=== PATIENT | female | born 1945 | race Caucasian/White ===

== ENCOUNTER 2017-12-18 08:52 | Inpatient (IN) | payer OTHER, MEDICARE ==
[~2017-12-18] VITALS: Ht 157.5 cm; Wt 127.5 kg
--- NOTE | 2017-12-18 09:49 | ED GENERAL ADULT ---
See Addendum History of Present Illness General Chief Complaint: General Adult Stated Complaint: ?CONFUSED LAST PM Source: patient, family, old records Exam Limitations: no limitations Vital Signs & Intake/Output Vital Signs & Intake/Output Vital Signs Date Time Temp Pulse Resp B/P B/P Pulse O2 O2 Flow FiO2 Mean Ox Delivery Rate 12/18 1311 98.5 89 20 149/63 96 Room Air 12/18 0900 96.1 82 18 138/84 97 Room Air Room Air Allergies Coded Allergies: NO KNOWN ALLERGIES (04/23/15) NKA per [facility] antibiotic order sheet. -- Jeri 04/23/15 Triage Note: BIBA FROM HOME, PER EMS AND PATIENT PT WAS CONFUSED LAST NIGHT, "I COULDN'T FIGURE OUT HOW TO GET IN TOUCH WITH ANYONE", PER EMS PT WAS YELLING OUTSIDE FOR HELP LAST NIGHT. THIS AM PT GOT IN TOUCH WITH HER GIRLFRIEND WHO CAME OVER, PT TALKING ABOUT "MY IN JUNE, I HAVEN'T BEEN OUT OF THE HOUSE SINCE THEN, I AM ON DEPRESSION MEDICATION, I HAVE ONE DRINK A DAY". PER PT SON AND HIS GIRLFRIEND ARE MOVING IN ON December TO TAKE CARE OF ME, I HAVE A APPT WITH DR SANTOS IN JANUARY. Triage Nurses Notes Reviewed? yes Onset: Gradual Duration: SINCE 5 PM YESTERDAY Timing: recent history Injury Environment: home Severity: moderate No Modifying Factors: none HPI: Patient is a 72-year-old female with history of anxiety, depression, hypothyroidism presenting to the emergency Department chief complaint of episode of confusion yesterday evening. Also patient reports that she's had intermittent confusion worsening over past month and a half. Family reports that she's been dealing with anxiety and depression and living alone since her passed approximately 6 months ago. Patient denying any current confusion chest pain palpitations or shortness of breath. She reports that yesterday evening she was trying to call someone and forgot, HOW to use the phone. She started yelling out for her neighbors been known came. Eventually someone came encountered down. She felt better immediately afterwards. According to family members she starts a thought process and cannot complete it because she cannot find the words to use. Patient reports that she is getting getting poor sleep over the past several months. Feels tired throughout the day. Patient also reports that she's had 2 falls over the past 1 month. One time she just rolled off the side of her bed. She called EMS to help her back onto bed but was not seen or evaluated. The second time she fell her legs gave out and she was weak, again she did not see anyone. According to family members her son and the girlfriend are planning to move in with her to help her around the house. Currently patient reports that she gets around the house with a rolling computer chair. Significant decline in ambulation status over the past several months. Patient also reports that she is gained about 40 pounds. No nausea or vomiting. Denies any burning with urination but does report urinary frequency for which she takes oxybutynin (Tesha Limon) Reconcile Medications Citalopram Hydrobromide (Citalopram HBr) 20 MG TABLET 1 TAB PO DAILY DEPRESSION (Reported) Methimazole 5 MG TABLET 1 TAB PO EOD HYPOTHYROID (Reported) Oxybutynin Chloride 5 MG TABLET 1 TAB PO TID OAB (Reported) Propranolol HCl 10 MG TABLET 1 TAB PO DAILY TREMOR / ANXIETY (Reported) (Oscar Martino DO) Past History Travel History Traveled to [place] past 21 day No Medical History Any Pertinent Medical History? see below for history Neurological: NONE EENT: NONE Cardiovascular: NONE Respiratory: NONE Gastrointestinal: NONE Hepatic: NONE Renal: KIDNEY STONES Musculoskeletal: NONE Psychiatric: anxiety, depression Endocrine: hypothyroidism Blood Disorders: NONE Cancer(s): NONE [employer]/Reproductive: NONE Surgical History Surgical History: non-contributory Psychosocial History What is your primary language Spanish Tobacco Use: Quit >30 days ago ETOH Use: occasional use Illicit Drug Use: denies illicit drug use Family History Hx Contributory? No (Tesha Limon) Review of Systems Review of Systems Constitutional: Reports: see HPI. Comments Review of systems: See HPI, All other systems negative. Constitutional, no chills fever or weight loss HEENT: No visual changes no sore throat no congestion Cardiovascular: No chest pain ,palpitation , orthopnea or ankle swelling Skin, no jaundice no rashes Respiratory: No dyspnea cough sputum or hemoptysis GI: No nausea no vomiting : No dysuria No hematuria Muscle skeletal: no back pain, no neck pain, Neurologic: No numbness NO HEADACHES Psych: POS STRESS/ANXIETY AND DEPRESSION, NO HI OR SI Heme/endocrine: No bruising no bleeding no polyuria or polydipsia Immunology: No splenectomy or history of AIDS (Tesha Limon) Physical Exam Physical Exam General Appearance: no apparent distress, alert, awake, comfortable, obese Comments: obese well-nourished person in no acute distress HEENT: extraocular motion intact, no nystagmus. Pupils equally round and reactive to light and accommodation. Nose is atraumatic. External auditory canal and Tympanic membranes clear. Pharynx normal. No swelling or edema. Moist oromucosa. Neck: Full range of motion, no C-spine tenderness. Normal inspection. Back: Nontender Cardiovascular: Regular rate and rhythms no audible murmurs rubs or gallops. Respiratory: Chest nontender. No respiratory distress.breath sounds clear to auscultation bilaterally Abdomen: Soft, nontender nondistended, no appreciable organomegaly. Normal bowel sounds. No ascites. No rebound or guarding. Extremity: Nonpitting edema in the lower extremities bilaterally., no calf tenderness to palpation, normal and equal pulses. Neuro: Alert oriented x3, motor sensory normal, cranial nerves II through XII grossly intact. Emulate with slow steady gait with max assist of 2. Cerebellar testing is unremarkable. Skin: No appreciable rash on exposed skin, skin is warm and dry. Psych: TEARFUL AT TIMESl, memory and judgment is normal. Core Measures ACS in differential dx? Yes CVA/TIA Diagnosis: No Sepsis Present: No Sepsis Focused Exam Completed? No (Tesha Limon) Progress Differential Diagnoses I considered the following diagnoses in my evaluation of the patient: CVA,TIA, ANXIETY, POLYSUBSTANCE ABUSE, DEMENTIA, ADJUSTMENT DISORDER Plan of Care: Orders Procedure Date/time Status CBC WITHOUT DIFFERENTIAL 12/19 0600 Active BASIC ELECTROLYTES PLUS BUN&CR 12/19 0600 Active Heart Healthy Diet 12/18 D Active Change service to 12/18 1751 Active Patient Data 12/18 1524 Active ED Holding Orders 12/18 1434 Active Admit to inpatient 12/18 1434 Active Vital Signs 12/18 1434 Active Code Status 12/18 1434 Active Add-on Test (ER Only) 12/18 1244 Active CULTURE,URINE 12/18 1045 Active Intake & Output 12/18 0951 Active URINE DRUG SCREEN FOR ER ONLY 12/18 0951 Complete URINALYSIS 04/17 0951 Complete THYROID STIMULATING HORMONE 12/18 950 Complete TROPONIN LEVEL 12/18 950 Complete MAGNESIUM 12/18 950 Complete FREE T4 12/18 950 Complete ETHANOL 12/18 950 Complete COMPREHENSIVE METABOLIC PANEL 12/18 950 Complete CBC WITHOUT DIFFERENTIAL 12/18 950 Complete B-TYPE NATRIURETIC PEP (BNP) 12/18 950 Complete EKG 12/18 950 Active PSYCHIATRIC CONSULT 12/18 UNK Active Current Medications Sig/Carrie Start time Last Medication Dose Stop Time Status Admin Citalopram 20 MG DAILY 12/19 0900 AC Hydrobromide (Celexa) Propranolol HCl 10 MG DAILY 12/19 09 AC (Inderal 10 MG Tablet.) Oxybutynin Chloride 5 MG TID 12/18 2100 AC (Ditropan) Methimazole 5 MG .[EOD] 12/18 1630 UNVr (Tapazole 5 MG Tablet) Sodium Chloride 1,000 ML ONCE ONE 12/18 1345 AC 12/18 (Normal Saline 0.9%) 12/19 0304 1342 Sodium Chloride 250 ML BOLUS ONE 12/18 1245 CAN (Normal Saline 0.9%) 12/18 1344 Laboratory Tests 12/18/17 1130: Anion Gap 11, Estimated GFR 37 L, BUN/Creatinine Ratio 20.0, Glucose 93, Calcium 9.7, Magnesium 1.5 L, Total Bilirubin 0.6, AST 14, ALT 15, Alkaline Phosphatase 79, Troponin I < 0.01, Dca-C-Lgidjpqayjy Pept 454 H, Total Protein 7.3, Albumin 3.7, Globulin 3.6, Albumin/Globulin Ratio 1.0 L, TSH 0.753, Free T4 1.36, CBC w Diff NO MAN DIFF REQ, RBC 3.54 L, MCV 93.1, MCH 31.4 H, MCHC 33.8, RDW 14.2, MPV 7.4, Gran % 66.7, Lymphocytes % 21.1, Monocytes % 8.1, Eosinophils % 3.7, Basophils % 0.4, Absolute Granulocytes 4.7, Absolute Lymphocytes 1.5, Absolute Monocytes 0.6, Absolute Eosinophils 0.3, Absolute Basophils 0, Serum Alcohol < 10.0 12/18/17 1045: Urine Opiates Screen < 100, Methadone Screen 63, Barbiturate Screen < 60, Ur Phencyclidine Scrn < 6.00, Amphetamines Screen < 100, U Benzodiazepines Scrn < 85, Urine Cocaine Screen < 50, Urine Cannabis Screen < 5.00, Urine Color YEL, Urine Clarity CLEAR, Urine pH 6.0, Ur Specific [place] <= 1.005, Urine Protein NEG, Urine Ketones NEG, Urine Nitrite NEG, Urine Bilirubin NEG, Urine Urobilinogen 0.2, Ur Leukocyte Esterase SMALL H, Ur Microscopic SEDIMENT EXAMINED, Urine RBC 1-3, Urine WBC 3-5 H, Ur Epithelial Cells FEW, Urine Bacteria FEW H, Urine Hemoglobin SMALL H, Urine Glucose NEG Microbiology 12/18 1045 URINE ROUT: Urine Culture - RECD 12/18/2017 1:46:41 PM patient informed of all of her results and imaging study results. Due to patient weakness and difficulty ambulating, onset for patient to be discharged home to live alone. Patient will need physical therapy consultation. They would like patient admitted to telemetry for questionable TIA. Patient has been a symptomatic since in the emergency department. No acute changes with EKG and troponin is negative. Patient able to eat and drink, swallowing without difficulty or choking. Discussed Dr. Wang he agrees with plan. Family is in agreement to plan as well. Patient will be admitted. Diagnostic Imaging: Viewed by Me: Radiology Read, CT Scan. Discussed w/RAD: Radiology Read, CT Scan. Radiology Impression: PATIENT: DESHAWN READ PRESENT AGE: 72 PATIENT ACCOUNT NO: [id number] : 47 LOCATION: [facility] ORDERING PHYSICIAN: Tesha MURGUIA SERVICE DATE: 12/18/17 EXAM TYPE: CAT - CT HEAD WO IV CONTRAST EXAMINATION: CT HEAD WITHOUT CONTRAST CLINICAL INFORMATION: Confusion last night. COMPARISON: No relevant prior imaging. TECHNIQUE: Contiguous axial imaging was performed from the skull base to vertex without intravenous administration of contrast. DLP: 635.29 mGy-cm FINDINGS: There is no acute intracranial hemorrhage or abnormal extra axial collection. No intracranial mass effect midline shift. Lateral and third ventricles are normal. No hydrocephalus. Ill-defined foci of hypoattenuation are visualized within the periventricular white matter that most likely represent a chronic manifestation of small vessel ischemia. Cano-white matter differentiation is grossly preserved and there is no evidence of acute territorial infarct. The calvarium and skull base are intact. Mastoid air cells and middle ear cavities are well-aerated. Visualized paranasal sinuses are well-aerated. IMPRESSION: There are scattered chronic small vessel ischemic changes within the periventricular white matter. No's of acute territorial infarct or hemorrhage. DICTATED BY: Norman Titus MD DATE/TIME DICTATED:12/18/171058 LOCOMOTIVE ENGINEER:DANIELA DATE/TIME TRANSCRIBED:12/18/171058 CONFIDENTIAL, DO NOT COPY WITHOUT APPROPRIATE AUTHORIZATION. <Electronically signed in Other Vendor System> SIGNED BY: Norman Titus MD 12/18/17 1106 CXR Impression: SLIGHT CARDIOMEGALY. Initial ED EKG: SINUS RHYTHM AT 85 BPM, PROBABLE LEFT ATRIAL ABNORMALITY (Tesha Limon) Differential Diagnoses I considered the following diagnoses in my evaluation of the patient: (Oscar Martino DO) Departure Departure Time of Disposition: 1403 Disposition: STILL A PATIENT Condition: Stable Clinical Impression Primary Impression: Confusion and disorientation Secondary Impressions: Multifactorial gait disorder Urinary tract infection Qualifiers: Urinary tract infection type: site unspecified Hematuria presence: without hematuria Qualified Code: N39.0 - Urinary tract infection, site not specified Referrals: Ivone PENA,Kaveh Romero (PCP/Family) Departure Forms: Customer Survey General Discharge Information Admission Note Spoke With: Lorena Almanzar MD Documentation of Exam: Documentation of any treatments & extenuating circumstances including Concerns Regarding Discharge (functional status, medication knowledge or non-compliance, living conditions, etc.) that warrant an admission rather than observation: Patient requiring telemetry monitoring for the initial 24 hours, serial neuro checks, may need crisis/ Claudia psych evaluation, medication adjustment, physical therapy evaluation and may need rehabilitation placement secondary to weakness and decreased mobility below baseline. (Tesha Limon) PA/FLIGHT DECK OFFICER Co-Sign Statement Statement: ED Attending supervision documentation- [X] I saw and evaluated the patient. I have also reviewed all the pertinent lab results and diagnostic results. I agree with the findings and the plan of care as documented in the PA's/FLIGHT DECK OFFICER's documentation. [] I have reviewed the ED Record and agree with the PA's/FLIGHT DECK OFFICER's documentation. [] Additions or exceptions (if any) to the PAs/FLIGHT DECK OFFICER's note and plan are summarized below: [ She was awake andn alert; she was in no acute distress on my evaluation. (Gunner HICKS,Oscar Sprague) Critical Care Note Critical Care Note Critical Care Time: non-applicable (Frederick MURGUIA,Tesha)
--- NOTE | 2017-12-18 11:06 | CT SCAN REPORT ---
EXAMINATION: CT HEAD WITHOUT CONTRAST CLINICAL INFORMATION: Confusion last night. COMPARISON: No relevant prior imaging. TECHNIQUE: Contiguous axial imaging was performed from the skull base to vertex without intravenous administration of contrast. DLP: 635.29 mGy-cm FINDINGS: There is no acute intracranial hemorrhage or abnormal extra axial collection. No intracranial mass effect midline shift. Lateral and third ventricles are normal. No hydrocephalus. Ill-defined foci of hypoattenuation are visualized within the periventricular white matter that most likely represent a chronic manifestation of small vessel ischemia. Cano-white matter differentiation is grossly preserved and there is no evidence of acute territorial infarct. The calvarium and skull base are intact. Mastoid air cells and middle ear cavities are well-aerated. Visualized paranasal sinuses are well-aerated. IMPRESSION: There are scattered chronic small vessel ischemic changes within the periventricular white matter. No's of acute territorial infarct or hemorrhage.
[2017-12-18 11:41] LABS: ABSOLUTE BASOPHIL COUNT 0 /CUMM (0.0-0.2); ABSOLUTE EOSINOPHIL COUNT 0.3 /CUMM (0.0-0.7); ABSOLUTE GRANULOCYTE CT 4.7 /CUMM (1.4-6.5); ABSOLUTE LYMPH COUNT 1.5 /CUMM (1.2-3.4); ABSOLUTE MONOCYTE COUNT 0.6 /CUMM (0.10-0.60); BASOPHIL % 0.4 % (0.0-2.0); EOSINOPHIL % 3.7 % (0-5); GRANULOCYTE % 66.7 % (42.2-75.2); MEAN CORPUSCULAR HGB 31.4 PG (27.0-31.0); MEAN CORPUSCULAR HGB CONC 33.8 G/DL (33.0-37.0); MEAN CORPUSCULAR VOLUME 93.1 FL (81.0-99.0); MEAN PLATELET VOLUME 7.4 FL (7.4-10.4); PLATELET COUNT 405 /CUMM (130-400); RBC DISTRIBUTION WIDTH 14.2 % (11.5-14.5); RED BLOOD CELL CT 3.54 /CUMM (4.20-5.40)
--- NOTE | 2017-12-18 12:22 | RADIOLOGY REPORT ---
EXAMINATION: XR CHEST CLINICAL INFORMATION: Question confusion. COMPARISON: None available. TECHNIQUE: 2 views of the chest were obtained. FINDINGS: Symmetric lung inflation. There is no focal consolidation, pleural effusion, or pneumothorax. Tortuous thoracic aorta. Cardiac silhouette is slightly enlarged. There are no acute osseous findings. IMPRESSION: No acute pulmonary process. Enlarged cardiac silhouette.
[2017-12-18] MEDS ORDERED: METHIMAZOLE5 M1 PO (16:20)
[2017-12-18] MEDS ORDERED: OXYBUTYNIN CHLOR5 M2 PO (16:20)
[2017-12-18] MEDS ORDERED: CITALOPRAM HBR20 MG PO (16:21)
[2017-12-18] MEDS ORDERED: PROPRANOLOL HCL10 M1 PO (16:21)
--- NOTE | 2017-12-18 16:50 | Admission Certification ---
Admission Certification Certification Statement - As attending physician, I certify that at the time of - admission, based on clinical presentation, severity of - symptoms, need for further diagnostic testing and - therapeutic interventions, and risk of adverse outcomes - without in-hospital treatment, in my clinical assessment, - this patient requires an acute hospital stay for a minimum - of two nights or longer. I have also considered psychsocial - factors such as support system, advanced age, financial - issues, cognitive issues, and failed out-patient treatments, - past re-admission history, safety of patient, and lack of - compliance as applicable. Specific rationale supporting this admission is: Fall, weakness and difficulty ambulation
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
--- NOTE | 2017-12-19 05:18 | Event Note ---
Event Note Event Note: Situation: Around 3.30 I was called by the ER to evaluate the patient for confusion Background: This is a 72yo F that was admitted earlier today after experiencing an episode of acute delirium a day before presentation. On my examination the patient was able to tell me her name, address, however she was unable to tell me where she was, the year or the president of the country. She appeared anxious and kept repeating that she feels wrong. She stated that she knew the answer to my question but is unable to communicate. No aphasia/ dysarthria was appreciable on her speech. She did not obey commnads for a neuro exam when attempted. Her CVS exam was suggestive of tachycardia. Her heart rate on the monitor showed up later as 119 with a BP 148/90. It seemed as if the patient had some difficulty putting thoughts to words. The ER physician Dr Walton was in agreement. The patient was examined during [facility] downtime and her chart could not be accessed. A decision was made to pursue a CTA head/ neck to rule out stroke. As of 6:40am, the results are still pending. A/R: * Follow up CTA head/neck * Reassess the patient * At 5pm after downtime, it was noted that the patient has a Cr of 1.4. Please hydrate the patient accordingly as she received contrast for the CTA.
--- NOTE | 2017-12-19 07:05 | PN- Housestaff ---
SonidoDaigle 12/19/17 0705: Subjective Follow-up For: Confusion and unsteady gait. Anxiety Tele-Events Since Last Visit: Patient's heart rate remained in 100s Subjective: Patient remained afebrile and appears seen and examined this morning. He reported having headache 10/. Patient also reported having constipation. Patient denied any chest pain, palpitation, nausea, vomiting, abdominal pain and dysuria. She is reporting more depressed as she reported having low appetite and low energy. The patient denied any suicidal thoughts. Review of Systems Constitutional: Denies: chills, fever. EENTM: Reports: no symptoms. Cardiovascular: Denies: chest pain, palpitations. Respiratory: Denies: cough, short of breath, sputum production. Gastrointestinal: Reports: constipation. Denies: abdominal pain, diarrhea, nausea. Neurological/Psychological: Reports: headache. Objective Last 24 Hrs of Vital Signs/I&O Vital Signs Date Time Temp Pulse Resp B/P B/P Pulse O2 O2 Flow FiO2 Mean Ox Delivery Rate 12/19 0900 98.4 111 16 144/89 12/19 0555 98.4 111 16 144/89 96 Room Air 12/19 0329 98.2 119 16 148/98 95 Room Air 12/18 1311 98.5 89 20 149/63 96 Room Air Physical Exam General Appearance: Alert, Oriented X3, Cooperative Skin Temp/Moisture Exam: Warm/Dry Sepsis Skin Exam (color): Normal for Ethnicity HEENT: Atraumatic, PERRLA, EOMI Neck: Supple Cardiovascular: Normal S1, Normal S2 Lungs: Clear to Auscultation Abdomen: Soft, No Tenderness Neurological: Normal Speech, Strength at 5/5 X4 Ext, Normal Tone, Sensation Intact Extremities: B/L pedal edema grade 1 Assessment/Plan Assessment: 72 YO obese F ex-smoker with PMH of nephrolithiasis status post lithotripsy, anxiety, depression and hyperthyroidism came to ED with chief complaint of confusion and generalized anxiety for 1 day. We are following the patient to telemetry floor following problems. Confusion and gait instability: -CTA head and CT scan head is negative for any intracranial pathology. -Patient having forgetfulness probably due to her depression. -Orthostatic vitals -PT evaluation -Her folic acid, vit b12 and TSH are normal -We will avoid oxybutanin and benzo as recommended by psych to prevent hallucination and psychosis. Generalized anxiety: -Continue her home medications -Psychiatric recommendations. H/O CKD: -Stage 3 with GFR 37 -Her creatinine is at baseline 1.4 after CTA. we will monitor. History of depression: -Continue her home medications History of hyperthyroidism: -Continue methimazole -Continue propranolol -TSH level History of urinary frequency: -Continue oxybutynin DVT prophylaxis: -Mechanical and subcutaneous heparin Code Status: Full code Problem List: 1. Confusion and disorientation 2. Multifactorial gait disorder Pain Ratin Pain Location: headache Pain Goal: Remain pain free Pain Plan: pain pathway Tomorrow's Labs & Rationales: bep/cbc Michelle Connors MD 12/19/17 1057: Attending MD Review Statement Attending Statement Attending MD Statement: examined this patient, discuss w/resident/PA/MACHINE HEEL SPRAYER, agreed w/resident/PA/MACHINE HEEL SPRAYER, reviewed EMR data (avail) Attending Assessment/Plan: 72F PMH hypothyroidism, anxiety, and depression admitted with confusion and weakness. She lost her 6 months ago, has fallen several times since then, most recently a few weeks ago. Overnight she was confused but neurologically intact. Per report she has also been drinking vodka daily, though it is unclear how much. She was given Ativan this morning and was sleeping peacefully. Imaging is negative for CVA and patient has no neurological deficit. 1. Confusion 2. Severe depression 3. MELISA Plan - Continue on telemetry for now - Psychiatry consult - Check orthostatics - Monitor for signs of withdrawal, but no further benzos unless clinical signs are exhibited - Continue home medications - PT eval - DVT PPx
--- NOTE | 2017-12-19 08:24 | CT SCAN REPORT ---
EXAMINATION: CT HEAD ANGIOGRAM CT NECK ANGIOGRAM CLINICAL INFORMATION: Difficulty word finding and altered mental status. Assess for CVA. COMPARISON: CT scan of the head 12/18/2017. Thyroid ultrasound 12/09/2013. TECHNIQUE: Test bolus series followed by intravenous administration 95 mL of Optiray 320. Helical imaging was performed in the axial plane from the mediastinum to the skull vertex. A post contrast axial CT scan of the head was obtained. The degree of stenosis is based off NASCET criteria. The data was processed at the generation technologist workstation for generation of MIP images. Three-dimensional volume rendered reformatted images were also generated at an offline 3-D workstation. Some images are suboptimal due to patient motion artifact and body habitus. DLP: 1106.19 mGy-cm FINDINGS: CT Head: There is no evidence of acute intracranial hemorrhage or territorial infarction. No abnormal mass-effect or midline shift is seen. Cano to white matter differentiation is well preserved. No extra-axial fluid collections are identified. There is no abnormal enhancement. The ventricles are normal in size. There are patchy areas of low attenuation in the periventricular and subcortical white matter, consistent with chronic microvascular ischemic changes. The osseous structures and soft tissues are normal. The mastoid air cells and visualized portions of the paranasal sinuses are well-aerated. CTA neck: There is a classic configuration of the arch of the aorta. There are atheromatous calcifications of the aorta at the origins of the great vessels of the neck. The proximal common carotid and subclavian artery origins bilaterally are degraded by beam hardening artifact from contrast in the right neck venous structures. The great vessels of the neck appear widely patent. The subclavian arteries are patent bilaterally. The common carotid arteries have normal caliber. There are mild atheromatous calcifications at the right carotid bifurcation without significant stenosis. The left carotid bifurcation is unremarkable The internal carotid arteries in the neck bilaterally have uniform and normal caliber. The origins of both vertebral arteries are moderately well seen and appear normal. Account for artifact, but vertebral arteries are patent and demonstrate good opacification throughout their cervical course. The vertebral arteries are codominant. Nonvascular: Visualized lung hickman are well-aerated. The thyroid gland is enlarged extends into the retrosternal region particularly on the right. Densities heterogenous and there is a punctate calcification in the left lateral lobe of the thyroid gland, with areas of low attenuation in both lobes measuring up to 1.1 cm. There is no cervical lymphadenopathy. There is a degenerative anterolisthesis of C3 on C4 and there is a retrolisthesis of C6 and C7. There is multilevel narrowing of intervertebral disc height with facet arthropathic changes and uncovertebral osteophytosis. There are degenerative changes at the bilateral atlantooccipital joints. A focus of density in the lateral aspect of the body of C2 on the right is likely a bone island. CTA Head: In the anterior circulation, the distal internal carotid arteries within the neck appear normal. There are mild atheromatous calcifications of the cavernous internal carotid arteries. The internal carotid artery bifurcations appear normal. The middle and anterior cerebral arteries bilaterally demonstrate normal caliber with no evidence of focal stenosis, aneurysm or vascular malformation. There are 3 anterior cerebral artery A2 segments, a normal variant There is normal arborization of the middle cerebral artery branches. The anterior communicating artery is normal. In the posterior circulation, the right vertebral artery is dominant. The proximal intradural right vertebral artery slightly ectatic without evidence of a discrete aneurysm. The vertebral arteries intradurally have normal caliber. The basilar artery appears normal. The posterior cerebral arteries have normal caliber. The venous sinuses opacify normally. IMPRESSION: 1. There are no acute intracranial territorial infarcts. There are no masses or areas of abnormal enhancement. 2. No focal stenoses, vascular malformations or aneurysms are demonstrated in the head or neck circulation. 3. The study redemonstrates heterogenous thyromegaly. A nodule in the right lobe measures greater than 1 cm, and recommend follow-up ultrasound to assess interval changes. 4. Imaging is slightly suboptimal due to patient motion artifact and body habitus.
[2017-12-19 08:30] LABS: ABSOLUTE BASOPHIL COUNT 0 /CUMM (0.0-0.2); ABSOLUTE EOSINOPHIL COUNT 0.1 /CUMM (0.0-0.7); ABSOLUTE LYMPH COUNT 0.8 /CUMM (1.2-3.4); ABSOLUTE MONOCYTE COUNT 0.3 /CUMM (0.10-0.60); BASOPHIL % 0.4 % (0.0-2.0); EOSINOPHIL % 0.9 % (0-5); HEMATOCRIT 32.7 % (37-47); MEAN CORPUSCULAR HGB 31.5 PG (27.0-31.0); MEAN CORPUSCULAR HGB CONC 33.6 G/DL (33.0-37.0); MEAN CORPUSCULAR VOLUME 93.6 FL (81.0-99.0); MEAN PLATELET VOLUME 7.1 FL (7.4-10.4); RBC DISTRIBUTION WIDTH 14.6 % (11.5-14.5); WHITE BLOOD CELL COUNT 9.3 /CUMM (4.8-10.8)
[2017-12-19 08:43] LABS: GRANULOCYTE % 86.1 % (42.2-75.2); PLATELET COUNT 413 /CUMM (130-400)
--- NOTE | 2017-12-19 10:58 | Incdntl Nt Psy ---
See Addendum Incidental Note Notation: @ 1049: The patient is calm, lying on her right side, asleep. She is arousable to answer only a few questions, and falls back asleep. She staes that she knows what day it is, and then falls asleep. On being aroused again, she denies auditory or visual hallucinations. She denies suicidal or homicidal ideation. She is in no apparent distress. 1. Please clarify what medications she is taking and who is prescribing them. We are aware that Dr. Wiseman has been prescribing citalopram, but the med claim history is not clear on the dosing. Also, the team mentioned that someone started her on aripiprazole, as well. We will revisit her when she is awake and alert. Thank you for this consult.
[2017-12-19 15:27] VITALS: BP 138/80
[2017-12-20 06:49] VITALS: BP 130/78
--- NOTE | 2017-12-20 07:31 | PN- Housestaff ---
[facility] Subjective Follow-up For: Confusion and unsteady gait. Anxiety and Depression Tele-Events Since Last Visit: SR with heart rate between 6587 Subjective: No overnight events. Patient remained afebrile overnight. Seen and examined this morning. She denied any chest pain, short of breath, nausea, vomiting, chills, fever and dysuria. Patient reported having headache /. Review of Systems Constitutional: Denies: chills, fever. EENTM: Reports: no symptoms. Cardiovascular: Denies: chest pain, palpitations. Respiratory: Reports: cough. Denies: short of breath, sputum production. Gastrointestinal: Denies: abdominal pain, constipation, diarrhea, nausea. Genitourinary: Reports: no symptoms. Neurological/Psychological: Reports: headache. Objective Last 24 Hrs of Vital Signs/I&O Vital Signs Date Time Temp Pulse Resp B/P B/P Pulse O2 O2 Flow FiO2 Mean Ox Delivery Rate 12/20 0649 98.4 91 20 130/78 93 Room Air 12/19 2236 98.7 80 20 93 Room Air 12/19 1527 98.4 86 20 138/80 92 Room Air 12/19 1334 98.2 81 20 142/87 94 Room Air 12/19 1111 98.9 98 20 146/84 97 Room Air 12/19 0900 98.4 111 16 144/89 Intake & Output 12/20 0800 12/20 0000 12/19 1600 Intake Total 110 200 Output Total 425 300 Balance -315 -100 Intake, IV 10 Intake, Oral 100 200 Number 2 Bowel Movements Output, Urine 425 300 Patient 277 lb 287 lb 285 lb Weight Weight Bed scale Measurement Method Physical Exam General Appearance: Alert, Oriented X3, Cooperative Skin Temp/Moisture Exam: Warm/Dry Sepsis Skin Exam (color): Normal for Ethnicity HEENT: Atraumatic, PERRLA, EOMI Neck: Supple Cardiovascular: Normal S1, Normal S2 Lungs: Clear to Auscultation Abdomen: Soft, No Tenderness Neurological: Normal Speech, Strength at 5/5 X4 Ext, Normal Tone Extremities: No Edema Assessment/Plan Assessment: 72 YO obese F ex-smoker with PMH of nephrolithiasis status post lithotripsy, anxiety, depression and hyperthyroidism came to ED with chief complaint of confusion and generalized anxiety for 1 day. Problem list. Confusion and gait instability: -CTA head and CT scan head is negative for any intracranial pathology. -Patient having forgetfulness probably due to her depression. -Orthostatic vitals -PT evaluation -Her folic acid, vit b12 and TSH are normal -We will avoid oxybutanin and benzo as recommended by psych to prevent hallucination and psychosis. Generalized anxiety: -Continue her home medications -Psychiatric recommendations. Alcohol withdrawl: -Patient has history of alcohol drinking. -psych recommended to keep patient on CIWA protocol -Supplemental vit b12, folic acid and thiamin. H/O CKD: -Stage 3 with GFR 37 -Her creatinine is at baseline 1.4 after CTA. we will monitor. History of depression: -Continue her home medications History of hyperthyroidism: -Continue methimazole -Continue propranolol History of urinary frequency: -Oxybutynin was discontinued to prevent hallucinations and psychosis. DVT prophylaxis: -Mechanical and subcutaneous heparin Code Status: Full code Problem List: 1. Confusion and disorientation 2. Multifactorial gait disorder Pain Ratin Pain Location: headache Pain Goal: Remain pain free Pain Plan: pain pathway Tomorrow's Labs & Rationales: none Michelle Connors MD 12/20/17 0935: Attending MD Review Statement Attending Statement Attending MD Statement: examined this patient, discuss w/resident/PA/VENEER DRIER FEEDER, agreed w/resident/PA/VENEER DRIER FEEDER, reviewed EMR data (avail) Attending Assessment/Plan: 72F PMH hypothyroidism, anxiety, and depression admitted with confusion and weakness. She lost her 6 months ago, has fallen several times since then, most recently a few weeks ago. Overnight she was confused but neurologically intact. Per report she has also been drinking vodka daily, though it is unclear how much. Imaging is negative for CVA and patient has no neurological deficit. More awake and alert today. A&Ox3 after being A&Ox2 on admission. Able to recall that she was confused yesterday. No neurological deficit. Labs reviewed. 1. Confusion 2. Severe depression 3. MELISA Plan - Discontinue telemetry, transfer to general medicine floor - Psychiatry consult - Monitor for signs of withdrawal, but no further benzos unless clinical signs are exhibited - Continue home medications - PT eval - DVT PPx - Candidate for STR, but refuses to go, as her in rehab in June. Will continue to work with physical therapy. Lives alone now, but in a week will move in with her son.
--- NOTE | 2017-12-20 09:34 | Transfer of Care Summary ---
Hospital Course Course Hospital Course: 72 YO obese F ex-smoker with PMH of nephrolithiasis status post lithotripsy, anxiety, depression and hyperthyroidism came to ED with chief complaint of confusion and generalized anxiety for 1 day. Initially patient was admitted on telemetry floor with a suspicion of stroke considering her confusion. CT scan and CTA head and neck was done that ruled out stroke. Patient has a history of depression and after the of her it's progressively worsened. Psychiatry consult was obtained and recommendations were followed. Psychiatry recommended to provide anticholinergic and benzos to prevent psychosis and hallucinations. [facility]. Patient is refusing to go to rehabilitation facility. For her gait instability we will get PT evaluation. Pertinent Lab Results: Chest x-ray on 12/18/17: IMPRESSION: No acute pulmonary process. Enlarged cardiac silhouette. Head CT scan on 12/18/2017: IMPRESSION: There are scattered chronic small vessel ischemic changes within the periventricular white matter. No's of acute territorial infarct or hemorrhage. Head CTA on 12/18/2017: IMPRESSION: 1. There are no acute intracranial territorial infarcts. There are no masses or areas of abnormal enhancement. 2. No focal stenoses, vascular malformations or aneurysms are demonstrated in the head or neck circulation. 3. The study redemonstrates heterogenous thyromegaly. A nodule in the right lobe measures greater than 1 cm, and recommend follow-up ultrasound to assess interval changes. 4. Imaging is slightly suboptimal due to patient motion artifact and body habitus. Neck CTA 12/18/17: IMPRESSION: 1. There are no acute intracranial territorial infarcts. There are no masses or areas of abnormal enhancement. 2. No focal stenoses, vascular malformations or aneurysms are demonstrated in the head or neck circulation. 3. The study redemonstrates heterogenous thyromegaly. A nodule in the right lobe measures greater than 1 cm, and recommend follow-up ultrasound to assess interval changes. 4. Imaging is slightly suboptimal due to patient motion artifact and body habitus. Assessment/Plan: Confusion and gait instability: -CTA head and CT scan head is negative for any intracranial pathology. -Patient having forgetfulness probably due to her depression. -Orthostatic vitals -PT evaluation -Her folic acid, vit b12 and TSH are normal -We will avoid oxybutanin and benzo as recommended by psych to prevent hallucination and psychosis. Generalized anxiety: -Continue her home medications -Psychiatric recommendations. Alcohol withdrawal; -H/O of alcohol drinking. -Psych recommended to keep patient on CIWA protocol -Supplemental vit b12, folic acid and thiamin H/O CKD: -Stage 3 with GFR 37 -Her creatinine is at baseline 1.4 after CTA. we will monitor. History of depression: -Continue her home medications History of hyperthyroidism: -Continue methimazole -Continue propranolol History of urinary frequency: -Oxybutynin was discontinued to prevent hallucinations and psychosis. DVT prophylaxis: -Mechanical and subcutaneous heparin Code Status: Full code
--- NOTE | 2017-12-20 10:46 | PN- Student ---
Subjective Subjective: No acute events overnight. Patient seen and examined this morning. Patient complains of headache since yesterday. Headache 5/10 that is worse at night. Patient feels "a little bit better than yesterday". Patient feels tired and slept all day even though woke up at 3:00am with chills and headache. Patient reported that "I can't find the words" when interviewed this morning. Patient mentioned, "I gained 35 pounds since my ". Denied chest pain, nausea , vomiting, SOB, abdominal pain, diarrhea. Objective Objective: Vitals: T= 98.4 HR= 91 RR= 20 BP= 130/78 O2Sat= 93 RA I&O: I= 200 O=300 B= -100 BM= 2 PE: General= forgetful, alert, trouble putting thought into words CVS= normal S1 and S2, no gallop rub or murmur Lungs= clear bilateral Abdomen= soft, non-distended, non-tender Neuro= Normal Speech, Strength at 5/5 X4 Ext, Normal Tone Extremities= No Edema, no rashes Results Results: Laboratory Tests 12/20/17 0700: Anion Gap 9, Estimated GFR 44 L, BUN/Creatinine Ratio 15.8 12/19/17 0823: Anion Gap 14, Estimated GFR 37 L, BUN/Creatinine Ratio 17.9, Vitamin B12 308, Folate 12.7, CBC w Diff NO MAN DIFF REQ, RBC 3.50 L, MCV 93.6, MCH 31.5 H, MCHC 33.6, RDW 14.6 H, MPV 7.1 L, Gran % 86.1 H, Lymphocytes % 9.1 L, Monocytes % 3.5, Eosinophils % 0.9, Basophils % 0.4, Absolute Granulocytes 8.0 H, Absolute Lymphocytes 0.8 L, Absolute Monocytes 0.3, Absolute Eosinophils 0.1 , Absolute Basophils 0 12/18/17 1130: Anion Gap 11, Estimated GFR 37 L, BUN/Creatinine Ratio 20.0, Glucose 93, Calcium 9.7, Magnesium 1.5 L, Total Bilirubin 0.6, AST 14, ALT 15, Alkaline Phosphatase 79, Troponin I < 0.01, [id number] Pept 454 H, Total Protein 7.3, Albumin 3.7, Globulin 3.6, Albumin/Globulin Ratio 1.0 L, TSH 0.753, Free T4 1.36, CBC w Diff NO MAN DIFF REQ, RBC 3.54 L, MCV 93.1, MCH 31.4 H, MCHC 33.8, RDW 14.2, MPV 7.4, Gran % 66.7, Lymphocytes % 21.1, Monocytes % 8.1, Eosinophils % 3.7, Basophils % 0.4, Absolute Granulocytes 4.7, Absolute Lymphocytes 1.5, Absolute Monocytes 0.6, Absolute Eosinophils 0.3, Absolute Basophils 0, Serum Alcohol < 10.0 12/18/17 1045: Urine Opiates Screen < 100, Methadone Screen 63, Barbiturate Screen < 60, Ur Phencyclidine Scrn < 6.00, Amphetamines Screen < 100, U Benzodiazepines Scrn < 85, Urine Cocaine Screen < 50, Urine Cannabis Screen < 5.00, Urine Color YEL, Urine Clarity CLEAR, Urine pH 6.0, Ur Specific [place] <= 1.005, Urine Protein NEG, Urine Ketones NEG, Urine Nitrite NEG, Urine Bilirubin NEG, Urine Urobilinogen 0.2, Ur Leukocyte Esterase SMALL H, Ur Microscopic SEDIMENT EXAMINED, Urine RBC 1-3, Urine WBC 3-5 H, Ur Epithelial Cells FEW, Urine Bacteria FEW H, Urine Hemoglobin SMALL H, Urine Glucose NEG Microbiology 12/18 104 URINE ROUT: Urine Culture - RES Assessment/Plan Assessment: 72 y/o obese female with PMH of nephrolithiasis status post lithotripsy, anxiety , depression and hyperthyroidism. 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 Patient was admitted to [facility] due to changes in mental status. CTA of head and neck were negative for ischemia. Patient indicated been drinking alcohol more often then she used to after the of her in June 2017. Even though alcohol was less than 10 upon admission, alcohol withdrawal is in the differential. Other differentials include depressive disorder and bereavement disorder. Plan: Confusion -Probably due to her depression -CTA head and CT scan head is negative for any intracranial pathology -PT evaluation -Her folic acid, vit b12 and TSH are normal -Discontinued oxybutanin and benzo as recommended by psych to prevent hallucination and psychosis -F/U Generalized anxiety -Continue her home medications -Psychiatric recommendations History of depression: -Continue her home medications History of hyperthyroidism: -Cont. methimazole -Cont. propranolol History of urinary frequency: -Oxybutynin was discontinued DVT prophylaxis: -Mechanical and subcutaneous heparin
--- NOTE | 2017-12-20 12:25 | Cons- Psychiatry ---
Psychiatric Consult Date of Consult: 12/20/17 Reason for Consult: "Delirium, hx of anxiety/depression. late June, 'hasn't taken care of herself.'" History of Present Illness: This is a 72-year-old recently female brought in by ambulance from home on 12/18/2017 and zero 911, with a chief complaint of confusion versus question of syncope. Per the triage note, the patient couldn't figure out how to get in touch with anyone, and the night before, EMS had a report that the patient was outside the house yelling. She is followed for primary care by Kaveh Wiseman MD, and has her next appointment with him on 01/05/2018. The patient lives alone, after her , Jim, on 06/29/2017. Allergies: Coded Allergies: NO KNOWN ALLERGIES (NONE 12/19/17) NKA per [facility] antibiotic order sheet. -- Jeri 04/23/15 Current Medications: Current Medications Sig/Carrie Start time Last Medication Dose Route Stop Time Status Admin Acetaminophen 500 MG Q6P PRN 12/20 0815 AC PO Acetaminophen 650 MG ONCE ONE 12/20 0200 DC PO 12/20 0201 Acetaminophen/ 1 TAB ONCE ONE 12/20 0530 DC 12/20 Butalbital/Caffeine PO 12/20 0531 0557 Bisacodyl 5 MG DAILY 12/19 0900 AC 12/20 PO 0819 Citalopram 20 MG DAILY 12/19 0900 AC 12/20 Hydrobromide PO 0818 Heparin Sodium 5,000 UNIT Q8 12/19 1600 AC 12/20 (Porcine) SC 0601 Ibuprofen 200 MG Q6 PRN 12/20 0915 AC PO Methimazole 5 MG Q48H 12/19 0900 AC 12/19 PO 0900 Oxybutynin Chloride 5 MG TID 12/18 2100 DC 12/19 PO 0900 Polyethylene Glycol 17 GM DAILY 12/19 0900 AC 12/20 PO 0819 Propranolol HCl 10 MG DAILY 12/19 0900 AC 12/20 PO 0818 Past History Past Medical History Neurological: NONE EENT: NONE Cardiovascular: NONE Respiratory: NONE Gastrointestinal: NONE Hepatic: NONE Renal: KIDNEY STONES Musculoskeletal: NONE Psychiatric: anxiety, depression, rule out bereavement disorder, alcohol abuse Endocrine: hyperthyroidism Blood Disorders: NONE Cancer(s): NONE PSYCHIATRIC CLINICAL NURSE SPECIALIST/Reproductive: NONE Past Surgical History Surgical History: non-contributory Psychosocial History Strengths/Capabilities: Motivated for treatment, supportive son and friends. Physical Limitations (Interventions): Difficulty walking Psychiatric Treatment History Psych Treatment Psychiatric Treatment Yes Inpatient Treatment No Outpatient Treatment Yes Location of Treatment primary care provider, Dr. 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 She now has the one drink daily, but it is a large one. 1/2 gallon of vodka every 2 weeks equates to about 5 ounces of vodka daily plus her Zambuca. Assessment/Plan Mental Status Orientation: Person, Place, Situation Affect: Constricted Speech: Normal Neuro-vegetative: Anhedonia, Sleep Disturbance Mental Status Exam: The patient is lying on her side in her bed, is easily arousable. She is alert, calm and cooperative. She is oriented to person, place, day, date, month, year. She denies feelings of helplessness or hopelessness, but endorses worthlessness "I'm lazy," and also endorses guilty feelings, feeling that she didn't do enough for her Jim before his . She also feels that her may have been hiding some of his medical ailments from her. She and their son and been trying to get him to go to the doctor, which he refused. She denies any previous psychiatric history, "I'm usually happy and talkative." She is unaware of any family psychiatric history. She denies suicidal or homicidal ideation, including passive suicidality. She denies any history of suicide attempt. She reports that recently she has been feeling some panic, possibly agoraphobia. She reports having a fear of falling by going new places. 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 She reports her sleep is okay, but then states that she is not rested all the time, and really can't sleep more than 2 hours at a time due to her need to arise to urinate secondary to her bladder control problem. She reports that her appetite "must be okay, I gained 35 pounds since my ." She reports drinking 1/2 gallon of Smirnoff and a bottle of Cymbalta every 2 weeks, "I make one Humalog is strained." Prior to the of her spouse, she had one drink per week on a Sunday. She reports when she is really feeling depressed, she can call her brothers or her son and they will come right over. Patient reports that her falls are not due to alcohol, but due to her faulty knees. The patient is stating that she and her friend "want to give back, and mentions volunteering, or making items for the hospital. She mentions the stress of caring for her in his last days, as he was dying from a slow-growing pituitary tumor. She noticed a change in his personality in the last months of his life, in she was feeling depressed all the time, and never knew what to say to him, "everything I said was wrong." The patient reports that she has never been alone, and that her son, Malcolm, her only child, and his girlfriend, are going to move in with her. The patient denies any history of seizure, or prior attempt to detox from alcohol. Lab Results: Laboratory Tests 12/20 12/19 0700 0823 Chemistry Sodium (137 - 145 mmol/L) 139 140 Potassium (3.5 - 5.1 mmol/L) 3.9 4.1 Chloride (98 - 107 mmol/L) 105 104 Carbon Dioxide (22 - 30 mmol/L) 25 23 Anion Gap (5 - 16) 9 14 BUN (7 - 17 mg/dL) 19 H 25 H Creatinine (0.5 - 1.0 mg/dL) 1.2 H 1.4 H Estimated GFR (>60 ml/min) 44 L 37 L BUN/Creatinine Ratio (7 - 25 %) 15.8 17.9 Vitamin B12 (239 - 931 pg/mL) 308 Folate (2.76 - 20.0 ng/mL) 12.7 Hematology CBC w Diff NO MAN DIFF REQ WBC (4.8 - 10.8 /CUMM) 9.3 RBC (4.20 - 5.40 /CUMM) 3.50 L Hgb (12.0 - 16.0 G/DL) 11.0 L Hct (37 - 47 %) 32.7 L MCV (81.0 - 99.0 FL) 93.6 MCH (27.0 - 31.0 PG) 31.5 H MCHC (33.0 - 37.0 G/DL) 33.6 RDW (11.5 - 14.5 %) 14.6 H Plt Count (130 - 400 /CUMM) 413 H MPV (7.4 - 10.4 FL) 7.1 L Gran % (42.2 - 75.2 %) 86.1 H Lymphocytes % (20.5 - 51.1 %) 9.1 L Monocytes % (1.7 - 9.3 %) 3.5 Eosinophils % (0 - 5 %) 0.9 Basophils % (0.0 - 2.0 %) 0.4 Absolute Granulocytes (1.4 - 6.5 /CUMM) 8.0 H Absolute Lymphocytes (1.2 - 3.4 /CUMM) 0.8 L Absolute Monocytes (0.10 - 0.60 /CUMM) 0.3 Absolute Eosinophils (0.0 - 0.7 /CUMM) 0.1 Absolute Basophils (0.0 - 0.2 /CUMM) 0 12/18 12/18 1130 1045 Chemistry Sodium (137 - 145 mmol/L) 141 Potassium (3.5 - 5.1 mmol/L) 4.4 Chloride (98 - 107 mmol/L) 104 Carbon Dioxide (22 - 30 mmol/L) 26 Anion Gap (5 - 16) 11 BUN (7 - 17 mg/dL) 28 H Creatinine (0.5 - 1.0 mg/dL) 1.4 H Estimated GFR (>60 ml/min) 37 L BUN/Creatinine Ratio (7 - 25 %) 20.0 Glucose (65 - 99 mg/dL) 93 Calcium (8.4 - 10.2 mg/dL) 9.7 Magnesium (1.6 - 2.3 mg/dL) 1.5 L Total Bilirubin (0.2 - 1.3 mg/dL) 0.6 AST (14 - 36 U/L) 14 ALT (9 - 52 U/L) 15 Alkaline Phosphatase (<127 U/L) 79 Troponin I (< 0.11 ng/ml) < 0.01 [id number]-[id number] Pept (<125 pg/mL) 454 H Total Protein (6.3 - 8.2 g/dL) 7.3 Albumin (3.5 - 5.0 g/dL) 3.7 Globulin (1.9 - 4.2 gm/dL) 3.6 Albumin/Globulin Ratio (1.1 - 2.2 %) 1.0 L TSH (0.270 - 4.200 uIU/mL) 0.753 Free T4 (0.78 - 2.44 ng/dL) 1.36 Hematology CBC w Diff NO MAN DIFF REQ WBC (4.8 - 10.8 /CUMM) 7.0 RBC (4.20 - 5.40 /CUMM) 3.54 L Hgb (12.0 - 16.0 G/DL) 11.1 L Hct (37 - 47 %) 33.0 L MCV (81.0 - 99.0 FL) 93.1 MCH (27.0 - 31.0 PG) 31.4 H MCHC (33.0 - 37.0 G/DL) 33.8 RDW (11.5 - 14.5 %) 14.2 Plt Count (130 - 400 /CUMM) 405 H MPV (7.4 - 10.4 FL) 7.4 Gran % (42.2 - 75.2 %) 66.7 Lymphocytes % (20.5 - 51.1 %) 21.1 Monocytes % (1.7 - 9.3 %) 8.1 Eosinophils % (0 - 5 %) 3.7 Basophils % (0.0 - 2.0 %) 0.4 Absolute Granulocytes (1.4 - 6.5 /CUMM) 4.7 Absolute Lymphocytes (1.2 - 3.4 /CUMM) 1.5 Absolute Monocytes (0.10 - 0.60 /CUMM) 0.6 Absolute Eosinophils (0.0 - 0.7 /CUMM) 0.3 Absolute Basophils (0.0 - 0.2 /CUMM) 0 Toxicology Urine Opiates Screen (>2000 NG/ML) < 100 Methadone Screen (>300 NG/ML) 63 Barbiturate Screen (>200 NG/ML) < 60 Ur Phencyclidine Scrn (>25 NG/ML) < 6.00 Amphetamines Screen (>1000 NG/ML) < 100 U Benzodiazepines Scrn (>200 NG/ML) < 85 Urine Cocaine Screen (>300 NG/ML) < 50 Urine Cannabis Screen (>50 NG/ML) < 5.00 Serum Alcohol (<10 MG/DL) < 10.0 Urines Urine Color (YEL,AMB,STR) YEL Urine Clarity (CLEAR) CLEAR Urine pH (5.0 - 8.0) 6.0 Ur Specific [place] (1.001 - 1.035) <= 1.005 Urine Protein (NEG,<30 MG/DL) NEG Urine Ketones (NEG) NEG Urine Nitrite (NEG) NEG Urine Bilirubin (NEG) NEG Urine Urobilinogen (0.1 - 1.0 EU/dl) 0.2 Ur Leukocyte Esterase (NEG) SMALL H Ur Microscopic SEDIMENT EXAMINED Urine RBC (0 - 5 /HPF) 1-3 Urine WBC (0 - 2 /HPF) 3-5 H Ur Epithelial Cells (NONE,FEW) FEW Urine Bacteria (NEG/NONE) FEW H Urine Hemoglobin (NEG) SMALL H Urine Glucose (N MG/DL) NEG Diffential Diagnosis: Depressive disorder, unspecified Alcohol use disorder, moderate Rule out bereavement disorder Impression: Yesterday, we have suggesting holding her oxybutynin, which can cause or exacerbate confusion and psychotic symptoms such as hallucinations. Abnormalities and the patient's urinalysis on 417 were small amount of urine leukocyte esterase, 3-5 white blood cells, few urine bacteria and a small amount of hemoglobin, in the setting of a few epithelial cells. The patient's confusion and delirium have resolved at the time of our interview today, however, she indicates that she is been drinking at least 5 ounces of alcohol daily since the of her . We suspect that she may be experiencing some alcohol withdrawal, although serum alcohol was less than 10 upon presentation, and her last drink may have been some time on December 17. Provisional Treatment Plan: 1. Please initiate CIWA monitoring protocol 2. If the patient begins to show signs or symptoms of alcohol withdrawal, initiate the EtOH detox protocol. 3. Please start daily thiamine, folic acid and multivitamin. 4. The patient is in agreement to come to [facility] outpatient psychiatry, but intensive outpatient program may be more appropriate. 5. I have asked pastoral care to visit the patient, to discuss her bereavement process, due to her passing away in June 2017 We will continue to follow along with you. Thank you for this consult
[2017-12-20 15:29] VITALS: BP 132/74
[2017-12-20 23:07] VITALS: BP 138/68
[2017-12-21 04:00] VITALS: BP 138/68
[2017-12-21 05:41] VITALS: BP 130/70
--- NOTE | 2017-12-21 07:09 | PN- Student ---
Subjective Subjective: No acute events overnight. Patient seen and examined this morning. Complains of headache last night of 3/10 that improved with advil. She mentioned that Tylenol seem to "do nothing with the headaches" for her. Overall feeling better. Reported having more appetite today. Mentioned that whish to be more active and walk more, but usually tends to lean forward. Denied visual changes, sore throat , neach pain, chest pain, SOB, abdominal pain, nausea/vomiting, diarrhea, dysuria. Objective Objective: VITALS: T= 98.3 HR= 78 RR= 18 BP= 130/70 I&O: I= 1640 O= 425 B= 1215 BM=1 PE: General= alert, oriented. Resting in bed without any distress. CVS= normal S1 and S2, no gallop rub or murmur Lungs= clear bilateral Abdomen= soft, non-distended, non-tender Neuro= Normal Speech, Strength at 5/5 X4 Ext, Normal Tone Extremities= No Edema, no rashes Assessment/Plan Assessment: 72 y/o F with PMHx of nephrolithiasis s/p lithotripsy, anxiety, depression and hyperthyroidism. Patient presented to the ER with a c.c of confusion and generalized anxiety for one day [employer]N [employer]. Patient was admitted to [facility] due to changes in mental status. CTA of head and neck were negative for ischemia. Patient indicated been drinking alcohol more often then she used to after the of her in June 2017. Even though alcohol was less than 10 upon admission , alcohol withdrawal is in the differential. Other differentials include depressive disorder and bereavement disorder. Plan: Confusion -Probably due to her depression -CTA head and neck, CT scan head is negative for ischemia -Her folic acid, vit b12 and TSH are normal -Discontinued oxybutanin and benzo as recommended by psych -F/U psych recommendations -Thiamine and folic acid were added b/c are commonly decreased in chronic alcoholics Generalized anxiety -Continue her home medications -Psychiatric recommendations History of depression: -Continue her home medications History of hyperthyroidism: -Cont. methimazole -Cont. propranolol History of urinary frequency: -Oxybutynin was discontinued DVT prophylaxis: -Mechanical and subcutaneous heparin
--- NOTE | 2017-12-21 07:26 | PN- Housestaff ---
See Addendum Subjective Follow-up For: Confusion and unsteady gait. Anxiety and Depression Tele-Events Since Last Visit: off tele Subjective: No overnight events. Patient remained afebrile. She is seen and examined this morning. patient denied any chest pain, short of breath, nausea, vomiting and dysuria. Patient reported that she had headache last night but after getting pain medication it resolved. CIWA score remained zero. Patient is still refusing STR, we spoke to her about the risk and benefits of not going to STR and she decided to go home. Patient understood the risks and benefits of going home. Review of Systems Constitutional: Denies: chills, fever. EENTM: Reports: no symptoms. Cardiovascular: Denies: chest pain, palpitations. Respiratory: Denies: cough, short of breath, sputum production. Gastrointestinal: Denies: abdominal pain, constipation, diarrhea, nausea. Genitourinary: Reports: no symptoms. Neurological/Psychological: Reports: no symptoms. Objective Last 24 Hrs of Vital Signs/I&O Vital Signs Date Time Temp Pulse Resp B/P B/P Pulse O2 O2 Flow FiO2 Mean Ox Delivery Rate 12/21 0541 98.3 78 18 130/70 12/21 0400 98.4 81 16 138/68 12/20 2307 98.4 82 16 138/68 96 Room Air 12/20 1529 97.9 71 20 132/74 98 Room Air 12/20 0818 98.4 91 20 130/78 Intake & Output 12/21 0800 12/21 0000 12/20 1600 Intake Total 30 670 860 Output Total 250 Balance -220 670 860 Intake, Oral 30 670 860 Number 1 Bowel Movements Output, Urine 250 Patient 281 lb Weight Physical Exam General Appearance: Alert, Oriented X3, Cooperative Skin: No Rashes Skin Temp/Moisture Exam: Warm/Dry Sepsis Skin Exam (color): Normal for Ethnicity HEENT: Atraumatic, PERRLA, EOMI Neck: Supple Cardiovascular: Normal S1, Normal S2 Lungs: Clear to Auscultation Abdomen: Soft, No Tenderness Neurological: Normal Speech, Strength at 5/5 X4 Ext, Normal Tone Extremities: No Edema Assessment/Plan Assessment: 72 YO obese F ex-smoker with PMH of nephrolithiasis status post lithotripsy, anxiety, depression and hyperthyroidism came to ED with chief complaint of confusion and generalized anxiety for 1 day. Problem list. Confusion and gait instability: -CTA head and CT scan head is negative for any intracranial pathology. -Patient having forgetfulness probably due to her depression. -PT evaluation -Her folic acid, vit b12 and TSH are normal -We will avoid oxybutanin and benzo as recommended by psych to prevent hallucination and psychosis. -Patient needs outpatient dameon-psych eval. -Patient refused to go to [facility]. Generalized anxiety: -Continue her home medications -Psychiatric recommendations. Alcohol withdrawl: -Patient has history of alcohol drinking. -psych recommended to keep patient on CIWA protocol -Supplemental vit b12, folic acid and thiamin. H/O CKD: -Stage 3 with GFR 37 -Her creatinine is at baseline 1.4 after CTA. we will monitor. History of depression: -Continue her home medications History of hyperthyroidism: -Continue methimazole -Continue propranolol History of urinary frequency: -Oxybutynin was discontinued to prevent hallucinations and psychosis. DVT prophylaxis: -Mechanical and subcutaneous heparin Code Status: Full code Problem List: 1. Confusion and disorientation 2. Multifactorial gait disorder Pain Ratin Pain Location: none Pain Goal: Remain pain free Pain Plan: pain pathway Tomorrow's Labs & Rationales: bep
--- NOTE | 2017-12-21 08:14 | Patient Discharge Instructions ---
Discharge Instructions General Discharge Information You were seen/treated for: Severe depression Gait instability Watch for these problems: Altered mental status, agitation, nausea, vomiting, severe headache, suicidal ideation, low energy, low appetite, palpitation and chest pain. -If you experience any of these symptoms come to ED or call to your primary care physician. Special Instructions: Follow up with your primary care physician in one week. Follow up with outpatient psychiatry in one week. Diet Recommended Diet: Heart Healthy Activity Activity Self Limited: Yes Acute Coronary Syndrome Inclusion Criteria At DC or during hospital stay patient has or had the following: ACS DIAGNOSIS No Discharge Core Measures Meds if any: Prescribed or Continued at Discharge Meds if any: NOT Prescribed or Continued at Discharge Congestive Heart Failure Inclusion Criteria At DC or during hospital stay patient has or had the following: CHF DIAGNOSIS No Discharge Core Measures Meds if any: Prescribed or Continued at Discharge Meds if any: NOT Prescribed or Continued at Discharge Cerebrovascular accident Inclusion Criteria At DC or during hospital stay patient has or had the following: CVA/TIA Diagnosis No Discharge Core Measures Meds if any: Prescribed or Continued at Discharge Meds if any: NOT Prescribed or Continued at Discharge Venous thromboembolism Inclusion Criteria VTE Diagnosis No VTE Type NONE VTE Confirmed by (Test) NONE Discharge Core Measures - Per Current guidelines, there needs to be overlap - treatment for the first 5 days of Warfarin therapy. - If discharged on Warfarin prior to 5 days of - overlap therapy, the patient will need to be - assessed for post discharge needs including - *Post discharge parental anticoagulation - *Warfarin and/or parental anticoagulation education - *Follow up date to check INR post discharge At least 5 days overlap therapy as Inpatient No Meds if any: Prescribed or Continued at Discharge Note: Overlap Therapy is Warfarin and Anticoagulant Meds if any: NOT Prescribed or Continued at Discharge
--- NOTE | 2017-12-21 13:47 | Discharge Summary ---
Visit Information Visit Dates Admission Date: 12/18/17 Discharge Date: 12/21/17 Hospital Course Course Attending Physician: Dory PENA,[facility] Course: 72 YO obese F ex-smoker with PMH of nephrolithiasis status post lithotripsy, anxiety, depression and hyperthyroidism came to ED with chief complaint of confusion and generalized anxiety for 1 day. Patient reported that yesterday around 6 PM she was at home alone and she was feeling anxious. ED course: Vitals: Temperature 96.1, pulse 82, respiratory rate 18, blood pressure 138/84, oxygen saturation 97% on room air Labs: WBC count 7.0, hemoglobin 11.1, hematocrit 33.0, platelet count 405, sodium 141, potassium 4.4, BUN 28, creatinine 1.4, anion gap 11, BUNs/creatinine ratio 20.0, magnesium 1.5, AST 14, AST 15, troponin less than 0.01, proBNP 454 Confusion and gait instability: Patient presented with confusion and stroke was ruled out with normal CTA and CT scan head. Patient's confusion was probably due to severe depression and anxiety. Patient also had intermittent forgetfulness probably due to severe depression. Considering patient's gait instability physiotherapy consult was obtained and evaluated the patient twice and recommended home physical therapy. During the hospital stay patient's folic acid and vitamin B12 and TSH remained normal. She remained afebrile. Patient was offered short-term rehabilitation facility after the discharge that she refused. Patient had bad experience in the past considering her in short-term rehabilitation after being discharged from hospital that's why she didn't want to go to short-term rehabilitation. Risks and benefits of going home rather than short-term rehabilitation were discussed with patient and she agreed with it. Patient reported that her son and his girlfriend we'll move to her house after a week and she will not be home alone anymore. Severe depression and anxiety: Patient had severe depression considering her symptoms of low energy and low appetite. Patient denied any suicidal ideation. Patient's recently and after that she had severe depression episodes. Her home medications for depression were continued. Psychiatric consult was obtained and recommendations were followed. Psychiatry recommended to stop oxybutynin that can cause psychosis and hallucinations. Psychiatry recommended outpatient follow-up and they will discuss with patient about [facility] psych outpatient follow- up. Alcohol withdrawl: Patient was placed on CIWA protocol and watch for alcohol because symptoms. Patient had history of alcohol abuse especially after her 's she is drinking more. During the hospital stay she didn't score and didn't get any Ativan. H/O CKD: Patient had stage III CKD. Her kidney function was monitored and we have added any medication that can cause nephrotoxicity. Her kidney function remained stable during the hospital stay. History of hyperthyroidism: Continued her home medications. TSH and free T4 remained within normal limits. History of urinary frequency: Her Oxybutynin was stopped as recommended by psychiatry as it can cause hallucinations and psychosis. DVT prophylaxis: Mechanical and subcutaneous heparin Code Status: Full code Allergies: Coded Allergies: NO KNOWN ALLERGIES (NONE 12/19/17) NKA per STS antibiotic order sheet. -- Jeri 04/23/15 Pertinent Lab Results: Chest x-ray on 12/18/17: IMPRESSION: No acute pulmonary process. Enlarged cardiac silhouette. Head CT scan on 12/18/2017: IMPRESSION: There are scattered chronic small vessel ischemic changes within the periventricular white matter. No's of acute territorial infarct or hemorrhage. Head CT on 12/18/2017; IMPRESSION: 1. There are no acute intracranial territorial infarcts. There are no masses or areas of abnormal enhancement. 2. No focal stenoses, vascular malformations or aneurysms are demonstrated in the head or neck circulation. 3. The study redemonstrates heterogenous thyromegaly. A nodule in the right lobe measures greater than 1 cm, and recommend follow-up ultrasound to assess interval changes. 4. Imaging is slightly suboptimal due to patient motion artifact and body habitus. Neck CTA on 12/18/2017: IMPRESSION: 1. There are no acute intracranial territorial infarcts. There are no masses or areas of abnormal enhancement. 2. No focal stenoses, vascular malformations or aneurysms are demonstrated in the head or neck circulation. 3. The study redemonstrates heterogenous thyromegaly. A nodule in the right lobe measures greater than 1 cm, and recommend follow-up ultrasound to assess interval changes. 4. Imaging is slightly suboptimal due to patient motion artifact and body habitus. WBC count 9.3, hemoglobin 11.0, hematocrit 32.7, platelet count 413, sodium 141, potassium 4.0, BUN 17, creatinine 1.2, TSH 0.753, free T4 1 1.36 Disposition Summary Disposition Principal Diagnosis: Confusion and unsteady gait Severe depression and anxiety Additional Diagnosis: History of CKD History of hyperthyroidism History of urinary infrequency Discharge Disposition: home or self care Discharge Instructions General Discharge Information Code Status: Full Code Patient's Diet: Heart healthy diet Patient's Activity: Self-limited Follow-Up Instructions/Appts: Follow up with your primary care physician in one week. Follow up with outpatient psychiatry in one week. Medications at Discharge Discharge Medications: Stop taking the following medications: Oxybutynin Chloride (Oxybutynin Chloride) 5 MG TABLET ORAL THREE TIMES DAILY Continue taking these medications: Methimazole (Methimazole) 5 MG TABLET 1 Tablet ORAL Every other day Comments: Last Taken:12/21/17 Time:925 Propranolol HCl (Propranolol HCl) 10 MG TABLET 1 Tablet ORAL DAILY Comments: Last Taken:12/21/17 Time:926 Citalopram Hydrobromide (Citalopram HBr) 20 MG TABLET 1 Tablet ORAL DAILY Comments: Last Taken:12/21/17 Time:925 Copies To: Jocelyn PENA,[facility]; Ivone PENA,Kaveh Romero; Cristopher James APRN
== END 2017-12-21 16:00 | disposition home health service (06) | DRG 885 ==
LOC: ERH 08:52 → ERHI 14:34 → 1NO 14:34 → ERHI 17:52 → ENRESERV 12-19 12:49 → ENTRNSPT 12-19 13:29 → EDTRNSPTSTS 12-19 13:49 → EDTRNSPT 12-19 13:49 → 1NO 12-19 14:12 → CMPTRNSPT 12-19 14:21 → ENPENDDIS 12-21 13:36 → DELTRNSPT 12-21 15:41 → 1NO 12-21 16:00
PROVIDERS: Internal Medicine Interventional Cardiology; Physician Assistant
DX: F32.2 Major depressive disorder, single episode, severe without psychotic features (principal); N18.3 Chronic kidney disease, stage 3 (moderate); E66.01 Morbid (severe) obesity due to excess calories; Z68.43 Body mass index [BMI] 50.0-59.9, adult; R26.81 Unsteadiness on feet; R41.82 Altered mental status, unspecified; R53.1 Weakness; E03.9 Hypothyroidism, unspecified; I12.9 Hypertensive chronic kidney disease with stage 1 through stage 4 chronic kidney disease, or unspecified chronic kidney disease; F41.9 Anxiety disorder, unspecified; F32.9 Major depressive disorder, single episode, unspecified; Z91.81 History of falling; E66.9 Obesity, unspecified; F43.20 Adjustment disorder, unspecified; Z72.89 Other problems related to lifestyle; Z87.891 Personal history of nicotine dependence
CPT/HCPCS: 1NP; ERO; 36415; 71046; 80307; 81001; 82436; 87086; 93005; 93010; 97116-GO; 97161-GP; 97530-GO; 99232; G0480; J0131; J1644; J3490; J7040

== ENCOUNTER 2018-05-17 17:48 | Inpatient (IN) | payer OTHER, MEDICARE ==
[~2018-05-17] VITALS: Ht 157.5 cm; Wt 126.1 kg
[~2018-05-17 17:48] MED LIST: CITALOPRAM HBR20 MG PO; METHIMAZOLE5 M1 PO; OXYBUTYNIN CHLOR5 M2 PO; PROPRANOLOL HCL10 M1 PO
--- NOTE | 2018-05-17 19:07 | ED AMS/SEIZURE/WEAK/DIZZY ---
History of Present Illness General Chief Complaint: Altered Mental Status Stated Complaint: BIBA FOR MENTAL STATUS CHANGE Source: patient, family Exam Limitations: no limitations Vital Signs & Intake/Output Vital Signs & Intake/Output Vital Signs Date Time Temp Pulse Resp B/P B/P Pulse O2 O2 Flow FiO2 Mean Ox Delivery Rate 05/18 0056 Room Air 05/18 0038 98.3 89 20 130/86 96 Room Air 05/17 2350 97.4 92 20 136/72 98 Room Air 05/17 2229 97.7 90 20 118/71 96 Room Air 05/17 1957 98.9 99 20 147/66 95 Room Air 05/17 1857 98 Room Air 05/17 1801 98.2 100 24 190/98 97 Room Air ED Intake and Output 05/18 0000 05/17 1200 Intake Total Output Total 200 Balance -200 Output, Urine 200 Allergies Coded Allergies: NO KNOWN ALLERGIES (NONE 12/19/17) NKA per STS antibiotic order sheet. -- Jeri 04/23/15 Reconcile Medications Acetaminophen (Unknown Strength) TABLET (Unknown Dose) PO AD PRN PAIN/FEVER ( Reported) Cholecalciferol (Vitamin D3) (Vitamin D3) (Unknown Strength) CAPSULE (Unknown Dose) PO DAILY SUPPLEMENT (Reported) Citalopram Hydrobromide (Citalopram HBr) 20 MG TABLET 1 TAB PO DAILY DEPRESSION (Reported) Dicyclomine HCl 10 MG CAPSULE GI (Reported) Methimazole 5 MG TABLET 1 TAB PO AD HYPOTHYROID (Reported) Propranolol HCl 10 MG TABLET 1 TAB PO DAILY TREMOR / ANXIETY (Reported) Triage Note: biba from home after being found "very confused" by son. hx of same per son with normal CT scans and MRIs done. pt awake/alert with easy wob, no slurred speech. alert to place and person but not time. pt reports "i know i'm here because my memory isn't good - my son will be here to explaion further" Triage Nurses Notes Reviewed? yes Onset: Gradual Duration: day(s): Timing: recent history Injury Environment: home Severity Numbers: 4 Associated Symptoms: weakness HPI: 72 yo woman h/o occasional UTI's presents with weakness, increased confusion, not eating or drinking x several days. She has no fever, chills, nausea, vomiting, dairreha, dyspnea, chest pain. Past History Travel History Traveled to [place] past 21 day No Medical History Any Pertinent Medical History? 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 No Review of Systems Review of Systems Constitutional: Reports: no symptoms. EENTM: Reports: no symptoms. Respiratory: Reports: no symptoms. Cardiovascular: Reports: no symptoms. GI: Reports: no symptoms. Genitourinary: Reports: no symptoms. Musculoskeletal: Reports: no symptoms. Skin: Reports: no symptoms. Neurological/Psychological: Reports: no symptoms. Hematologic/Endocrine: Reports: no symptoms. Immunologic/Allergic: Reports: no symptoms. All Other Systems: Reviewed and Negative Physical Exam Physical Exam General Appearance: well developed/nourished, no apparent distress Head: atraumatic, normal appearance Eyes: Right: PERRL, EOMI. Bilateral: normal appearance. Neck: normal inspection, supple, full range of motion Respiratory: normal breath sounds, chest non-tender, no respiratory distress Gastrointestinal: normal bowel sounds, soft, non-tender Back: normal inspection, normal range of motion Extremities: evidence of injury Neurologic/Psych: no motor/sensory deficits, awake, alert Skin: intact, normal color, warm/dry Core Measures ACS in differential dx? No CVA/TIA Diagnosis No Sepsis Present: No Sepsis Focused Exam Completed? No Progress Differential Diagnosis: dehydration, renal failure vs other. Plan of Care: Orders Procedure Date/time Status Nothing by Mouth 05/18 B Active CBC WITHOUT DIFFERENTIAL 05/18 06 Active BASIC ELECTROLYTES PLUS BUN&CR 05/18 0600 Active Weight 05/18 41 Active Vital Signs 05/18 41 Active Teach/Educate 05/18 41 Active Pain Treatment and Response 05/18 41 Active Nutritional Intake, Monitor 05/18 41 Active Isolation 05/18 41 Active Intake & Output 05/18 41 Active Patient Care Conference 09/15 0041 Active Activity/Ambulation 05/18 0041 Active Lab Add-on Test 05/18 UNK Active FingerStick- Glucose 05/18 UNK Active Regular Diet 05/17 D Complete CULTURE,URINE 05/17 2326 Active URINE DRUGS OF ABUSE 05/17 2301 Active Pathway - chart 05/17 2300 Active House Staff 05/17 2300 Active Patient Data 05/17 2300 Active Code Status 05/17 2300 Active Patient Data 05/17 2208 Active LACTIC ACID 05/17 2207 Complete Saline Lock 05/17 2110 Active Misc Message 05/17 2110 Active ED Holding Orders 05/17 2110 Active Admit to inpatient 05/17 211 Active Vital Signs 05/17 211 Complete Code Status 05/17 211 Complete SERUM OSMOLALITY 05/17 1940 Complete ETHANOL 05/17 194 Complete URINE LYTES, SPOT 05/175 Active URINALYSIS 05/17 1907 Complete TROPONIN LEVEL 05/17 190 Complete LIPASE 05/17 1907 Complete LACTIC ACID 05/17 1907 Complete HEPATIC FUNCTION PANEL 05/17 1907 Complete CBC WITHOUT DIFFERENTIAL 05/17 1907 Complete BASIC METABOLIC PANEL 05/17 1907 Complete AMYLASE 05/17 1907 Complete EKG 05/17 1907 Active NIH Stroke Scale 05/17 1856 Active Intake & Output 05/17 1841 Active Lab Add-on Test 05/17 UNK Active VTE Mechanical Prophylaxis 05/17 UNK Active Vital Signs 05/17 UNK Active Intake & Output 05/17 UNK Complete Activity/Ambulation 05/17 UNK Active Current Medications Sig/Carrie Start time Last Medication Dose Stop Time Status Admin Cholecalciferol 1,000 IU DAILY 05/18 0900 AC (Vitamin D) Sodium Chloride 1,000 ML Q13H 05/17 2300 AC 05/17 (Normal Saline 0.9%) 2325 Laboratory Tests 05/17/18 2210: Lactic Acid 0.5 L 05/17/181939: Serum Alcohol Cancelled 05/17/181939: Anion Gap 9, Estimated GFR 20 L, BUN/Creatinine Ratio 17.5, Glucose 90, Serum Osmolality 313 H, Lactic Acid 0.6 L, Calcium 10.3 H, Total Bilirubin 0.4, Direct Bilirubin 0.3, AST 15, ALT 16, Alkaline Phosphatase 77, Troponin I < 0.01 , Total Protein 7.0, Albumin 3.6, Amylase 48, Lipase 139, CBC w Diff NO MAN DIFF REQ, RBC 3.20 L, MCV 90.8, MCH 30.8, MCHC 33.9, RDW 13.8, MPV 7.3 L, Gran % 69.1, Lymphocytes % 20.7, Monocytes % 8.1, Eosinophils % 1.7, Basophils % 0.4, Absolute Granulocytes 6.1, Absolute Lymphocytes 1.8, Absolute Monocytes 0.7 H, Absolute Eosinophils 0.1, Absolute Basophils 0, Serum Alcohol < 10.0 05/17/181924: Urine Color STRAW, Urine Clarity CLEAR, Urine pH 6.0, Ur Specific [place] 1.020, Urine Protein NEG, Urine Ketones NEG, Urine Nitrite NEG, Urine Bilirubin NEG, Urine Urobilinogen 0.2, Ur Leukocyte Esterase TRACE H, Ur Microscopic SEDIMENT EXAMINED, Urine RBC 1-3, Urine WBC 10-15 H, Ur Epithelial Cells MOD H, Urine Bacteria RARE H, Urine Hemoglobin NEG, Urine Glucose NEG 05/17/181924: Urine Opiates Screen < 100, Methadone Screen 59, Barbiturate Screen < 60, Ur Phencyclidine Scrn < 6.00, Amphetamines Screen < 100, U Benzodiazepines Scrn < 85, Urine Cocaine Screen < 50, Urine Cannabis Screen < 5.00, Ur Random Creatinine Pending, Ur Random Sodium Pending, Ur Random Potassium Pending, Fraction Sodium Excret Pending Microbiology 05/17 1925 URINE ROUT: Urine Culture - RECD Diagnostic Imaging: Viewed by Me: Radiology Read, CT Scan, MRI. Discussed w/RAD: Radiology Read, CT Scan. Radiology Impression: PATIENT: DESHAWN READ PRESENT AGE: 72 PATIENT ACCOUNT NO: [id number] : 47 LOCATION: [facility] ORDERING PHYSICIAN: Gael Walton MD SERVICE DATE: 05/17/18 EXAM TYPE: CAT - CT HEAD WO IV CONTRAST EXAMINATION: CT HEAD WITHOUT CONTRAST CLINICAL INFORMATION: Mental status change. COMPARISON: 12/18/2017. TECHNIQUE: Contiguous axial images of the brain were obtained without IV contrast. DLP: 622 mGy-cm. FINDINGS: There are no pathologic extra-axial fluid collections. The lateral, third, fourth ventricles are nondilated and concordant with the appearance of the sulci. There is no evidence for acute intraparenchymal hemorrhage or infarct. There is mild periventricular low-attenuation indicative of small vessel disease. There is neither mass nor mass effect. There is no shift of midline structures. The paranasal sinuses and mastoid air cells are clear. There are no osseous lesions. IMPRESSION: No evidence for acute intracranial injury. DICTATED BY: Sreekanth Polo MD DATE/TIME DICTATED:05/17/182105 ROPE SILICA MACHINE OPERATOR:DANIELA DATE/TIME TRANSCRIBED:05/17/182105 CONFIDENTIAL, DO NOT COPY WITHOUT APPROPRIATE AUTHORIZATION. <Electronically signed in Other Vendor System> SIGNED BY: Sreekanth Polo MD 05/17/182111 Initial ED EKG: SINUS, BIPHASIC P IN V1, NO ACUTE CHANGES Departure Departure Disposition: HOME OR SELF CARE Condition: Stable Clinical Impression Primary Impression: Acute renal failure Secondary Impressions: Change in mental status, Dehydration, Weakness Referrals: Kaveh Wiseman MD (PCP/Family) Departure Forms: Customer Survey General Discharge Information Admission Note Spoke With: Scooby Palacios MD Documentation of Exam: Documentation of any treatments & extenuating circumstances including Concerns Regarding Discharge (functional status, medication knowledge or non-compliance, living conditions, etc.) that warrant an admission rather than observation: pt with weakness and now with increased cr, more than twice her baseline, will merits iv fluids... I doubt acute UTI given her presnetation, but will also send culture. ED Attending Observation Initial Observation Note: I have seen and personally examined DESHAWN READ on 05/18/18 at 0545. I agree with the current emergency department documentation. The disposition (admission or discharge) is uncertain at this time, she needs a period of observation for the following reason(s): The ED Nurse caring for this patient has been personally informed as to what the patient is being observed for.
[2018-05-17 20:02] LABS: ABSOLUTE BASOPHIL COUNT 0 /CUMM (0.0-0.2); ABSOLUTE EOSINOPHIL COUNT 0.1 /CUMM (0.0-0.7); ABSOLUTE GRANULOCYTE CT 6.1 /CUMM (1.4-6.5); ABSOLUTE LYMPH COUNT 1.8 /CUMM (1.2-3.4); ABSOLUTE MONOCYTE COUNT 0.7 /CUMM (0.10-0.60); BASOPHIL % 0.4 % (0.0-2.0); EOSINOPHIL % 1.7 % (0-5); GRANULOCYTE % 69.1 % (42.2-75.2); HEMATOCRIT 29.1 % (37-47); MEAN CORPUSCULAR HGB 30.8 PG (27.0-31.0); MEAN CORPUSCULAR HGB CONC 33.9 G/DL (33.0-37.0); MEAN CORPUSCULAR VOLUME 90.8 FL (81.0-99.0); MEAN PLATELET VOLUME 7.3 FL (7.4-10.4); PLATELET COUNT 409 /CUMM (130-400); RBC DISTRIBUTION WIDTH 13.8 % (11.5-14.5); WHITE BLOOD CELL COUNT 8.8 /CUMM (4.8-10.8)
--- NOTE | 2018-05-17 20:03 | RADIOLOGY REPORT ---
EXAMINATION: AP chest x-ray CLINICAL INFORMATION: Fever COMPARISON: Chest x-ray 12/18/2017. TECHNIQUE: Portable frontal view of the chest was obtained. FINDINGS: There is symmetric lung inflation. There is no focal consolidation, pleural effusion, or pneumothorax. Cardiac silhouette remains mildly enlarged. Normal. There is a moderate to large hiatal hernia. IMPRESSION: - No acute pulmonary process. - Stable moderate to large hiatal hernia.
[2018-05-17] MEDS ORDERED: DICYCLOMINE HCL10 M1 PO (20:37)
[2018-05-17] MEDS ORDERED: VITAMIN D31000 UNI1 PO (20:38)
[2018-05-17] MEDS ORDERED: ACETAMINOPHEN500 M4 PO (20:38)
--- NOTE | 2018-05-17 21:12 | CT SCAN REPORT ---
EXAMINATION: CT HEAD WITHOUT CONTRAST CLINICAL INFORMATION: Mental status change. COMPARISON: 12/18/2017. TECHNIQUE: Contiguous axial images of the brain were obtained without IV contrast. DLP: 622 mGy-cm. FINDINGS: There are no pathologic extra-axial fluid collections. The lateral, third, fourth ventricles are nondilated and concordant with the appearance of the sulci. There is no evidence for acute intraparenchymal hemorrhage or infarct. There is mild periventricular low-attenuation indicative of small vessel disease. There is neither mass nor mass effect. There is no shift of midline structures. The paranasal sinuses and mastoid air cells are clear. There are no osseous lesions. IMPRESSION: No evidence for acute intracranial injury.
--- NOTE | 2018-05-17 22:56 | History & Physical ---
Julio PENA,[facility] 05/17/18 1228: General Information and HPI MD Statement: I have seen and personally examined DESHAWN READ and documented this H&P. The patient is a 72 year old F who presented with a patient stated chief complaint of [CONFUSION]. Source of Information: patient Exam Limitations: clinical condition History of Present Illness: Patient is a 72 YO obese F ex-smoker with PMH of nephrolithiasis status post lithotripsy, anxiety, depression and hyperthyroidism was BIBA with chief concern of confusion. Patient lives with son and he found her to be confused this morning in her room. She is usually alert oriented 3 and takes care of herself , takes her own medications. She has been more forgetful lately and found very confused this morning. During my interview the patient she is very tearful that she is becoming more forgetful, aware that she is more confused. She reports not drinking and eating anything since morning and hungry. She does report increased urination without any burning/distal care denies any fevers, chills. Patient was recently admitted with similar concerns and all the lab work was negative. Patient was on oxybutynin for urinary incontinence which was discontinued and sent in for physical therapy once a week at home for urinary incontinence. Allergies/Medications Allergies: Coded Allergies: NO KNOWN ALLERGIES (NONE 12/19/17) NKA per [facility] antibiotic order sheet. 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 Home Who Do You Live With? child Services at Home: Physical Therapy Functional Ability ADLs Independent: dressing, eating, toileting, bathing. Ambulation: independent IADLs Needs Assist: shopping, housework, finances, food prep, telephone, transportation, medication admin. Review of Systems Review of Systems Constitutional: Reports: see HPI. Exam & Diagnostic Data Last 24 Hrs of Vital Signs/I&O Vital Signs Date Time Temp Pulse Resp B/P B/P Pulse O2 O2 Flow FiO2 Mean Ox Delivery Rate 05/17 2229 97.7 90 20 118/71 96 Room Air 05/17 1957 98.9 99 20 147/66 95 Room Air 05/17 1857 98 Room Air 05/17 1801 98.2 100 24 190/98 97 Room Air Physical Exam General Appearance Alert, Oriented X3, Cooperative, Mild Distress Skin No Rashes, No Breakdown Skin Temp/Moisture Exam: Warm/Dry Sepsis Skin Exam (color): Normal for Ethnicity HEENT Atraumatic, PERRLA, EOMI Neck Supple, No JVD Cardiovascular Regular Rate, Normal S1, Normal S2 Lungs Clear to Auscultation, Normal Air Movement Abdomen Normal Bowel Sounds, Soft, No Tenderness Neurological Normal Speech, Normal Tone, Sensation Intact Extremities No Clubbing, No Cyanosis, mild edema present Vascular Normal Pulses Last 24 Hrs of Labs/Shaji: Laboratory Tests 05/17/182209: Lactic Acid 0.5 L 05/17/181939: Serum Alcohol Cancelled 05/17/181939: Anion Gap 9, Estimated GFR 20 L, BUN/Creatinine Ratio 17.5, Glucose 90, Serum Osmolality 313 H, Lactic Acid 0.6 L, Calcium 10.3 H, Total Bilirubin 0.4, Direct Bilirubin 0.3, AST 15, ALT 16, Alkaline Phosphatase 77, Troponin I < 0.01 , Total Protein 7.0, Albumin 3.6, Amylase 48, Lipase 139, CBC w Diff NO MAN DIFF REQ, RBC 3.20 L, MCV 90.8, MCH 30.8, MCHC 33.9, RDW 13.8, MPV 7.3 L, Gran % 69.1, Lymphocytes % 20.7, Monocytes % 8.1, Eosinophils % 1.7, Basophils % 0.4, Absolute Granulocytes 6.1, Absolute Lymphocytes 1.8, Absolute Monocytes 0.7 H, Absolute Eosinophils 0.1, Absolute Basophils 0, Serum Alcohol < 10.0 05/17/181924: Urine Color STRAW, Urine Clarity CLEAR, Urine pH 6.0, Ur Specific [place] 1.020, Urine Protein NEG, Urine Ketones NEG, Urine Nitrite NEG, Urine Bilirubin NEG, Urine Urobilinogen 0.2, Ur Leukocyte Esterase TRACE H, Ur Microscopic SEDIMENT EXAMINED, Urine RBC 1-3, Urine WBC 10-15 H, Ur Epithelial Cells MOD H, Urine Bacteria RARE H, Urine Hemoglobin NEG, Urine Glucose NEG 05/17/181924: Urine Opiates Screen < 100, Methadone Screen 59, Barbiturate Screen < 60, Ur Phencyclidine Scrn < 6.00, Amphetamines Screen < 100, U Benzodiazepines Scrn < 85, Urine Cocaine Screen < 50, Urine Cannabis Screen < 5.00, Ur Random Creatinine Pending, Ur Random Sodium Pending, Ur Random Potassium Pending, Fraction Sodium Excret Pending Microbiology 05/17 1925 URINE ROUT: Urine Culture - RECD Assessment/Plan Assessment: Patient is 72-year-old female with past medical history significant for hyperthyroidism on methimazole, anxiety/depression, recent episode of acute confusion presented with an at that episode of sudden onset confusion. By the time of interview patient is alert oriented 3 and aVF that she is becoming more forgetful lately. She did not eat or drink anything since morning today. Vital signs at presentation did show blood pressure of 190/98 mmHg, physical examination unremarkable. Labs are significant for history H&H 9.9/29.1, sodium 136, creatinine 2.4 from 1.2. U tox negative. UA shows trace leukocyte esterase white count of 15. Differential It is highly likely that patient is becoming more forgetful and cognitively declining lately specifically after her . She had episode of delirium now. She merits Mini-Mental Status Examination and geriatric evaluation. I suspect her acute kidney injury and other related abnormalities are secondary to decreased by mouth intake that happened after her confusion. Plan Admitted to general medicine floor Delirium Likely secondary to progression of underlying dementia * IV hydration * Periodic Reorientation * Candidate for HELP program * Follow-up urine culture to rule out infection as a cause * Merits geriatric evaluation Acute kidney injury Likely due to dehydration - creatinine 2.4 from 1.2 * IV hydration * Check BEP again * Follow-up urine culture Continue home medications - includes DVT prophylaxis Subcutaneous heparin CODE STATUS Full code Core Measures/Misc (05/20) Acute Coronary Syndrome ACS Diagnosis: No Congestive Heart Failure Congestive Heart Failure Diagnosis No Cerebrovascular Accident CVA/TIA Diagnosis: No VTE (View Protocol) VTE Risk Factors Acute Medical Illness No Mechanical VTE Prophylaxis d/t N/A MechProphylax Ordered No VTE Pharm Prophylaxis d/t NA PharmProphylax ordered Sepsis (View protocol) Sepsis Present: No If YES complete Sepsis Event Note If YES complete Sepsis Event Note Scooby Palacios MD 05/18/18 0625: General Information and HPI Statement: I have seen and personally examined DESHAWN READ and documented this H&P. The patient is a 72 year old F who presented with a patient stated chief complaint of []. Source of Information: patient Exam Limitations: clinical condition Allergies/Medications Home Med list Acetaminophen 500 MG TABLET 2 TAB PO Q6P PRN PAIN/FEVER (Reported) Cholecalciferol (Vitamin D3) (Vitamin D3) (Unknown Strength) CAPSULE (Unknown Dose) PO DAILY SUPPLEMENT (Reported) Citalopram Hydrobromide (Citalopram HBr) 20 MG TABLET 1 TAB PO DAILY DEPRESSION (Reported) Dicyclomine HCl 10 MG CAPSULE GI (Reported) Methimazole 5 MG TABLET 1 TAB PO EOD HYPOTHYROID (Reported) Propranolol HCl 10 MG TABLET 1 TAB PO DAILY TREMOR / ANXIETY (Reported) Past History Medical History Renal: KIDNEY STONES Psychiatric: anxiety, depression, rule out bereavement disorder alcohol abuse Endocrine: hyperthyroidism Review of Systems Review of Systems Constitutional: Reports: see HPI. Exam & Diagnostic Data Last 24 Hrs of Vital Signs/I&O Vital Signs Date Time Temp Pulse Resp B/P B/P Pulse O2 O2 Flow FiO2 Mean Ox Delivery Rate 05/18 0605 98.3 90 22 130/72 95 Room Air 05/18 0056 Room Air 05/18 0038 98.3 89 20 130/86 96 Room Air 05/17 2350 97.4 92 20 136/72 98 Room Air 05/17 2229 97.7 90 20 118/71 96 Room Air 05/17 1957 98.9 99 20 147/66 95 Room Air 05/17 1857 98 Room Air 05/17 1801 98.2 100 24 190/98 97 Room Air Intake & Output 05/18 0800 05/18 0000 05/17 1600 Intake Total 487.5 Output Total 300 200 Balance 187.5 -200 Intake, IV 487.5 Output, Urine 300 200 Patient 278 lb Weight Weight Bed scale Measurement Method Physical Exam General Appearance Alert, Oriented X3, Cooperative, Mild Distress Skin No Rashes, No Breakdown Skin Temp/Moisture Exam: Warm/Dry Sepsis Skin Exam (color): Normal for Ethnicity HEENT Atraumatic, PERRLA, EOMI Neck Supple, No JVD Cardiovascular Regular Rate, Normal S1, Normal S2 Lungs Clear to Auscultation, Normal Air Movement Abdomen Normal Bowel Sounds, Soft, No Tenderness Neurological Normal Speech Extremities No Clubbing, No Cyanosis Vascular Normal Pulses Sepsis Peripheral Pulse Location: Dorsalis Pedis Sepsis Peripheral Pulse Exam: Normal Sepsis Cap Refill Exam: <2 Sec Last 24 Hrs of Labs/Shaji: Laboratory Tests 05/17/182209: Lactic Acid 0.5 L 05/17/181939: Serum Alcohol Cancelled 05/17/181939: Anion Gap 9, Estimated GFR 20 L, BUN/Creatinine Ratio 17.5, Glucose 90, Serum Osmolality 313 H, Lactic Acid 0.6 L, Calcium 10.3 H, Total Bilirubin 0.4, Direct Bilirubin 0.3, AST 15, ALT 16, Alkaline Phosphatase 77, Troponin I < 0.01 , Total Protein 7.0, Albumin 3.6, Amylase 48, Lipase 139, CBC w Diff NO MAN DIFF REQ, RBC 3.20 L, MCV 90.8, MCH 30.8, MCHC 33.9, RDW 13.8, MPV 7.3 L, Gran % 69.1, Lymphocytes % 20.7, Monocytes % 8.1, Eosinophils % 1.7, Basophils % 0.4, Absolute Granulocytes 6.1, Absolute Lymphocytes 1.8, Absolute Monocytes 0.7 H, Absolute Eosinophils 0.1, Absolute Basophils 0, Serum Alcohol < 10.0 05/17/181924: Urine Color STRAW, Urine Clarity CLEAR, Urine pH 6.0, Ur Specific [place] 1.020, Urine Protein NEG, Urine Ketones NEG, Urine Nitrite NEG, Urine Bilirubin NEG, Urine Urobilinogen 0.2, Ur Leukocyte Esterase TRACE H, Ur Microscopic SEDIMENT EXAMINED, Urine RBC 1-3, Urine WBC 10-15 H, Ur Epithelial Cells MOD H, Urine Bacteria RARE H, Urine Hemoglobin NEG, Urine Glucose NEG 05/17/181924: Urine Opiates Screen < 100, Methadone Screen 59, Barbiturate Screen < 60, Ur Phencyclidine Scrn < 6.00, Amphetamines Screen < 100, U Benzodiazepines Scrn < 85, Urine Cocaine Screen < 50, Urine Cannabis Screen < 5.00, Ur Random Creatinine 58.0, Ur Random Sodium 101 H, Ur Random Potassium 23.8, Fraction Sodium Excret 3.1 H Microbiology 05/17 1925 URINE ROUT: Urine Culture - RECD Assessment/Plan As Ranked By This Provider Problem List: 1. Confusion and disorientation Core Measures/Misc (05/20) Sepsis (View protocol) If YES complete Sepsis Event Note If YES complete Sepsis Event Note Attending MD Review Statement Attending Statement Attending MD Statement: examined this patient, discuss w/resident/PA/PUNCH PRESS SETTER, agreed w/resident/PA/PUNCH PRESS SETTER, discussed with nursing, discussed with case mgmt Attending Assessment/Plan: This patient is a 72-year-old female with a significant past medical history for nephrolithiasis status post lithotripsy, anxiety, depression and hyperthyroidism was BIBA with chief concern of confusion. Patient lives with her son and he found her to be confused this morning in her room. She is usually alert oriented 3 and takes care of herself, takes her own medications. She has been more forgetful lately and found very confused this morning. During my interview the patient she is very tearful that she is becoming more forgetful, aware that she is more confused. She does report increased urination without any burning/ distal care denies any fevers, chills. While in the emergency department the patient was afebrile and initial blood pressure was elevated 198 over 100s but decreased quickly to 140s over 70s, she is slightly anemic at 9.9, her urine has some suggestion of underlying infection, she is slightly hyponatremic, her BUN and creatinine are elevated 42 over 2.4, micro-biology pending, chest x-ray without acute changes, and CT head without acute changes. This patient will be admitted to general medicine, gentle hydration, follow urine culture, consider geographic/palliative care consult,and follow BUN and creatinine after hydration. Full code
[2018-05-18 00:38] VITALS: BP 130/86
[2018-05-18 06:05] VITALS: BP 130/72
--- NOTE | 2018-05-18 06:32 | PN- Housestaff ---
See Addendum Subjective Follow-up For: Acute delirium MELISA Subjective: Patient feels much better and reports feeling well. She is alert and oriented X3. she reports feeling frustated as unable to recall her son number and it made the situation worse yesterday. Review of Systems Constitutional: Reports: see HPI. Objective Last 24 Hrs of Vital Signs/I&O Vital Signs Date Time Temp Pulse Resp B/P B/P Pulse O2 O2 Flow FiO2 Mean Ox Delivery Rate 05/18 0605 98.3 90 22 130/72 95 Room Air 05/18 0056 Room Air 05/18 0038 98.3 89 20 130/86 96 Room Air 05/17 2350 97.4 92 20 136/72 98 Room Air 05/17 2229 97.7 90 20 118/71 96 Room Air 05/17 1957 98.9 99 20 147/66 95 Room Air 05/17 1857 98 Room Air 05/17 1801 98.2 100 24 190/98 97 Room Air Intake & Output 05/18 0800 05/18 0000 05/17 1600 Intake Total 487.5 Output Total 300 200 Balance 187.5 -200 Intake, IV 487.5 Output, Urine 300 200 Patient 126.099 kg Weight Weight Bed scale Measurement Method Physical Exam General Appearance: Alert, Oriented X3, Cooperative, No Acute Distress Skin: No Rashes, No Breakdown, No Significant Lesion Skin Temp/Moisture Exam: Warm/Dry HEENT: Atraumatic, PERRLA, EOMI Neck: Supple, No JVD Cardiovascular: Regular Rate, Normal S1, Normal S2 Lungs: Clear to Auscultation, Normal Air Movement Abdomen: Normal Bowel Sounds, Soft, No Tenderness Neurological: Normal Speech, Strength at 5/5 X4 Ext, Normal Tone Extremities: No Clubbing, No Cyanosis Vascular: Normal Pulses Current Medications: Current Medications Sig/Carrie Start time Last Medication Dose Route Stop Time Status Admin Acetaminophen 0 .STK-MED ONE 05/18 115 DC PO Acetaminophen 325 MG ONCE ONE 05/18 100 DC 05/18 PO 05/18 Cholecalciferol 1,000 IU DAILY 05/18 900 AC PO Citalopram 20 MG DAILY 05/18 900 AC 05/18 Hydrobromide PO 825 Methimazole 5 MG DAILY 05/18 900 AC 09/15 PO 0826 Propranolol HCl 10 MG DAILY 05/18 0900 AC 05/18 PO 0826 Sodium Chloride 1,000 ML Q13H 05/17 2300 AC 05/17 IV 2325 Last 24 Hrs of Lab/Shaji Results Last 24 Hrs of Labs/Mics: Laboratory Tests 05/18/18 0743: Anion Gap 10, Estimated GFR 20 L, BUN/Creatinine Ratio 15.0, Vitamin B12 Pending, TSH Pending, Free T4 Pending, CBC w Diff NO MAN DIFF REQ, RBC 3.10 L, MCV 91.9, MCH 31.0, MCHC 33.7, RDW 14.2, MPV 7.5, Gran % 59.9, Lymphocytes % 25.5, Monocytes % 10.1 H, Eosinophils % 3.8, Basophils % 0.7, Absolute Granulocytes 4.6, Absolute Lymphocytes 1.9, Absolute Monocytes 0.8 H, Absolute Eosinophils 0.3, Absolute Basophils 0.1 05/17/182209: Lactic Acid 0.5 L 05/17/181939: Serum Alcohol Cancelled 05/17/181939: Anion Gap 9, Estimated GFR 20 L, BUN/Creatinine Ratio 17.5, Glucose 90, Serum Osmolality 313 H, Lactic Acid 0.6 L, Calcium 10.3 H, Total Bilirubin 0.4, Direct Bilirubin 0.3, AST 15, ALT 16, Alkaline Phosphatase 77, Troponin I < 0.01 , Total Protein 7.0, Albumin 3.6, Amylase 48, Lipase 139, CBC w Diff NO MAN DIFF REQ, RBC 3.20 L, MCV 90.8, MCH 30.8, MCHC 33.9, RDW 13.8, MPV 7.3 L, Gran % 69.1, Lymphocytes % 20.7, Monocytes % 8.1, Eosinophils % 1.7, Basophils % 0.4, Absolute Granulocytes 6.1, Absolute Lymphocytes 1.8, Absolute Monocytes 0.7 H, Absolute Eosinophils 0.1, Absolute Basophils 0, Serum Alcohol < 10.0 05/17/181924: Urine Color STRAW, Urine Clarity CLEAR, Urine pH 6.0, Ur Specific [place] 1.020, Urine Protein NEG, Urine Ketones NEG, Urine Nitrite NEG, Urine Bilirubin NEG, Urine Urobilinogen 0.2, Ur Leukocyte Esterase TRACE H, Ur Microscopic SEDIMENT EXAMINED, Urine RBC 1-3, Urine WBC 10-15 H, Ur Epithelial Cells MOD H, Urine Bacteria RARE H, Urine Hemoglobin NEG, Urine Glucose NEG 05/17/181924: Urine Opiates Screen < 100, Methadone Screen 59, Barbiturate Screen < 60, Ur Phencyclidine Scrn < 6.00, Amphetamines Screen < 100, U Benzodiazepines Scrn < 85, Urine Cocaine Screen < 50, Urine Cannabis Screen < 5.00, Ur Random Creatinine 58.0, Ur Random Sodium 101 H, Ur Random Potassium 23.8, Fraction Sodium Excret 3.1 H Microbiology 05/17 1925 URINE ROUT: Urine Culture - RECD Assessment/Plan Assessment: Patient is 72-year-old female with past medical history significant for hyperthyroidism on methimazole, anxiety/depression, recent episode of acute confusion presented with an at that episode of sudden onset confusion. By the time of interview patient is alert oriented 3 and aVF that she is becoming more forgetful lately. She did not eat or drink anything since morning today. Vital signs at presentation did show blood pressure of 190/98 mmHg, physical examination unremarkable. Labs are significant for history H&H 9.9/29.1, sodium 136, creatinine 2.4 from 1.2. U tox negative. UA shows trace leukocyte esterase white count of 15. Plan Admitted to general medicine floor Delirium Likely secondary to begning of cognitive decline - aging vs Alzheimers. Less likely lewy body as no hallucinations, less likely frontotemporal as no behavioural changes. * IV hydration * Periodic Reorientation * Candidate for HELP program * Follow-up urine culture to rule out infection as a cause * [facility]its geriatric evaluation as outpatient Acute kidney injury Likely due to dehydration - creatinine 2.4 from 1.2 * IV hydration * Check BEP again * Follow-up urine culture H/o Hyperthyroidism Continue methimazole, check TSH, free T4. Continue home medications - includes dicyclomine, propronolol DVT prophylaxis Subcutaneous heparin CODE STATUS Full code Problem List: 1. Dehydration 2. Weakness 3. Confusion and disorientation Pain Ratin Pain Location: n/a Pain Goal: Pain 4 or less Pain Plan: tylenol Tomorrow's Labs & Rationales: bep cbc
[2018-05-18 08:46] LABS: ABSOLUTE BASOPHIL COUNT 0.1 /CUMM (0.0-0.2); ABSOLUTE EOSINOPHIL COUNT 0.3 /CUMM (0.0-0.7); ABSOLUTE GRANULOCYTE CT 4.6 /CUMM (1.4-6.5); ABSOLUTE LYMPH COUNT 1.9 /CUMM (1.2-3.4); ABSOLUTE MONOCYTE COUNT 0.8 /CUMM (0.10-0.60); BASOPHIL % 0.7 % (0.0-2.0); EOSINOPHIL % 3.8 % (0-5); GRANULOCYTE % 59.9 % (42.2-75.2); HEMATOCRIT 28.5 % (37-47); MEAN CORPUSCULAR HGB CONC 33.7 G/DL (33.0-37.0); MEAN CORPUSCULAR VOLUME 91.9 FL (81.0-99.0); MEAN PLATELET VOLUME 7.5 FL (7.4-10.4); PLATELET COUNT 416 /CUMM (130-400); RBC DISTRIBUTION WIDTH 14.2 % (11.5-14.5); WHITE BLOOD CELL COUNT 7.6 /CUMM (4.8-10.8)
--- NOTE | 2018-05-18 13:04 | Cons- Nephrology ---
General Information and HPI Consulting Request Date of Consult: 05/18/18 Requested By: Scooby Palacios MD History of Present Illness: Ms Ragsdale is a 72 yo F with history of depression, anxiety disorder, nephrolithiasis s/p lithotripsy in the past (follows with Dr. Nick Morales) who was admitted earlier today with weakness and confusion and was found to be in renal failure (Cr 2.4 baseline 1.2 from this past summer). On questioning she admits to NSAID use (Advil) on a daily basis for knee pain. She was thought to be dehydrated and started on NS with improvement in U.O. Allergies/Medications Allergies: Coded Allergies: NO KNOWN ALLERGIES (NONE 12/19/17) NKA per [facility] antibiotic order sheet. -- Jeri 04/23/15 Home Med List: Acetaminophen 500 MG TABLET 2 TAB PO Q6P PRN PAIN/FEVER (Reported) Cholecalciferol (Vitamin D3) (Vitamin D3) (Unknown Strength) CAPSULE (Unknown Dose) PO DAILY SUPPLEMENT (Reported) Citalopram Hydrobromide (Citalopram HBr) 20 MG TABLET 1 TAB PO DAILY DEPRESSION (Reported) Dicyclomine HCl 10 MG CAPSULE GI (Reported) Methimazole 5 MG TABLET 1 TAB PO EOD HYPOTHYROID (Reported) Propranolol HCl 10 MG TABLET 1 TAB PO DAILY TREMOR / ANXIETY (Reported) Review of Systems Review of Systems: As in HPI weakness confusion frequent small voids No fevers, chills, SOB/cough other systemms negative Past History Travel History Traveled to [place] past 21 day No Medical History Neurological: NONE EENT: NONE Cardiovascular: NONE Respiratory: NONE Gastrointestinal: NONE Hepatic: NONE Renal: KIDNEY STONES Musculoskeletal: NONE Psychiatric: anxiety, depression, rule out bereavement disorder alcohol abuse Endocrine: hyperthyroidism Blood Disorders: NONE Cancer(s): NONE EP 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 Home Who Do You Live With? child Services at Home: Physical Therapy Smoking Status: Former Smoker Functional Ability ADLs Independent: dressing, eating, toileting, bathing. Ambulation: independent IADLs Needs Assist: shopping, housework, finances, food prep, telephone, transportation, medication admin. Exam & Diagnostic Data Vital Signs and I&O Obese pleasant F comfortable a bit forgetfull 128/74 88 98.3 Skin neg rash Eyes anicteric ENT moist Lungs clear Cor RRR Abd soft obese N/T Ext chronic edema Results Pertinent Lab Results: 139 / 105 / 36 / 4.2 / 24 /2.4\ UA negative protein Renal Ultrasound (my review of U/S during exam on screen) R kidney normal cortex no hydro Left kidney moderate hydronephrosis with preserved cortex Assessment/Plan Assessment/Recommendations Assessment: Impression MELISA with doubling of creatinine. This is almost certainly due to unilateral obstruction (loss of much of the renal function on that side even if obstruction is partial). Would ask urology (Dr Morales) to see (they can see on Sunday) as she will need urologic intervention to correct the obstruction. Thanks will follow as needed. Norman Barboza MD Recommendations: .
[2018-05-18 13:52] VITALS: BP 130/60
--- NOTE | 2018-05-18 16:02 | ULTRASOUND REPORT ---
EXAMINATION: US RETROPERITONEAL COMPLETE (RENAL) CLINICAL INFORMATION: Delirium. Dehydration.. COMPARISON: None TECHNIQUE: Real-time imaging of the kidneys and bladder. FINDINGS: RIGHT KIDNEY: 8.5 x 3.7 x 3.4 cm cm (SAG x AP x TRV). Mild, diffuse atrophy of the renal cortex. The cortical echotexture is normal. No focal parenchymal lesion, nephrolithiasis or hydronephrosis. LEFT KIDNEY: 10.3 x 5.6 x 4.6 cm (SAG x AP x TRV). The kidney has normal cortical thickness and echotexture. No evidence of nephrolithiasis. There is moderate hydronephrosis. BLADDER: Urinary bladder is distended to an estimated volume of 52 mL. The right and left ureteral jets were not identified during the time of imaging. No bladder mass or calculi. IMPRESSION: - No evidence of nephrolithiasis. - Moderate left hydronephrosis is of uncertain cause. - Mild atrophy of the right kidney.
[2018-05-18 22:21] VITALS: BP 130/80
[2018-05-19 05:53] VITALS: BP 130/88
--- NOTE | 2018-05-19 08:25 | CT SCAN REPORT ---
EXAMINATION: CT ABDOMEN AND PELVIS WITHOUT CONTRAST CLINICAL INFORMATION: Nephrolithiasis. Acute renal insufficiency. Delirium. COMPARISON: Renal ultrasound, 05/18/2018. TECHNIQUE: Multidetector volumetric imaging was performed from the superior aspect of the liver through the pubic symphysis. Sagittal and coronal reformatted images were obtained on the technologist's workstation. DLP: 1308 mGy-cm FINDINGS: PARK LANDSCAPE ARCHITECT: Obese body habitus. LUNG BASES: Unremarkable. No basilar consolidation or pleural effusion. Mitral valve annulus is calcified. Moderate-sized hiatal hernia. LIVER, GALLBLADDER, AND BILIARY TREE: Liver has normal size, contour and attenuation. Gallbladder contains multiple small calcified stones. No gallbladder wall edema or pericholecystic fluid. No intrahepatic or extrahepatic bile duct dilatation. PANCREAS: Unremarkable. SPLEEN: Unremarkable. ADRENAL GLANDS: Unremarkable. KIDNEYS AND URETERS: Mild atrophy of the right kidney. There are several calyceal stones of the right kidney. The stones were not depicted on the ultrasound images of 05/18/2018. The largest calculi in the interpolar region and right lower pole measure up to 0.7 cm. The calculi have attenuation in the range of 600-700 HU. The right ureter is unremarkable. Left kidney, which is normal in size, has multiple small calyceal stones, largest measuring up to 0.4 cm in maximum dimension. Moderate left hydronephrosis and proximal hydroureter caused by an obstructing 0.7 x 1.1 x 1.6 cm calculus at the L4 level of the ureter. This calculus, which has attenuation of approximately 1,150 HU, is visible on the airport ramp agent image. BLADDER: Unremarkable. BOWEL AND PERITONEUM: Moderate size sliding-type hiatal hernia of the stomach. Bowel loops are normal in caliber. The appendix is normal. Multiple diverticula of the descending and sigmoid colon without diverticulitis. No ascites or pneumoperitoneum. ABDOMINAL WALL: Unremarkable. LYMPH NODES: No pathologic sized lymph nodes in the abdomen or pelvis. No inguinal lymphadenopathy. VASCULAR: Mild atherosclerosis of abdominal aorta without aneurysm. The visualized descending thoracic aorta is tortuous. PELVIC: The uterus is grossly unremarkable. No adnexal mass or pelvic free fluid. MUSCULOSKELETAL: There is rotatory levoscoliosis of the degenerated lumbar spine. Multilevel degenerative disc disease as manifest by disc space narrowing, vacuum disc phenomenon, endplate sclerosis and osteophytosis. Multilevel facet osteoarthritis of the lumbar spine, as well. There is 0.6 cm grade 1 anterolisthesis of L4 on L5. There is minimal retrolisthesis of L5 and S1. Severe osteoarthritis of the left hip. IMPRESSION: - Bilateral nephrolithiasis. - Moderate left hydronephrosis and proximal hydroureter caused by a 0.7 x 1.1 x 1.6 cm calculus at the L4 level of the ureter. - Cholelithiasis. - Hiatal hernia and colonic diverticulosis. No acute findings along the gastrointestinal tract. - Obesity, multilevel degenerative disc disease and facet osteoarthritis of the spine, and severe osteoarthritis of left hip.
--- NOTE | 2018-05-19 08:42 | PN- Housestaff ---
Julio PENA,Estelita 05/19/18 0842: Subjective Follow-up For: Delirium Obstructive uropathy leading to MELISA on CKD Subjective: Patient is alert. NPO overnight for procedure. No overnght events. Review of Systems Constitutional: Reports: see HPI. Objective Last 24 Hrs of Vital Signs/I&O Vital Signs Date Time Temp Pulse Resp B/P B/P Pulse O2 O2 Flow FiO2 Mean Ox Delivery Rate 05/19 0553 98.4 113 22 130/88 95 Room Air 05/19 0000 96 Room Air 05/18 2221 98.7 91 20 130/80 96 05/18 1352 97.8 79 20 130/60 97 Room Air Intake & Output 05/19 1600 05/19 0800 05/19 0000 Intake Total 800 840 Output Total 600 460 Balance 200 380 Intake, IV 800 600 Intake, Oral 0 240 Number 0 1 Bowel Movements Output, Urine 600 460 Physical Exam General Appearance: Alert, Oriented X3, Cooperative Skin: No Rashes, No Breakdown Sepsis Skin Exam (color): Normal for Ethnicity HEENT: Atraumatic, PERRLA, EOMI Neck: Supple, No JVD Cardiovascular: Regular Rate, Normal S1, Normal S2 Lungs: Clear to Auscultation, Normal Air Movement Abdomen: Normal Bowel Sounds, Soft, No Tenderness Neurological: Normal Gait, Normal Speech, Strength at 5/5 X4 Ext, Normal Tone Extremities: lower extremity edema present Vascular: Normal Pulses Current Medications: Current Medications Sig/Carrie Start time Last Medication Dose Route Stop Time Status Admin Acetaminophen 0 .STK-MED ONE 05/19 124 DC IV Acetaminophen 325 MG Q6P PRN 05/18 1700 AC PO Cholecalciferol 1,000 IU DAILY 05/18 09 AC 05/19 PO 0900 Citalopram 20 MG DAILY 05/18 09 AC 05/19 Hydrobromide PO 0900 Dextrose/Sodium 1,000 ML Q13H 05/19 1030 AC 05/19 Chloride IV 1941 Fentanyl Citrate 0 .STK-MED ONE 05/19 124 DC .ROUTE Methimazole 5 MG Q48H 05/20 0900 AC PO Midazolam HCl 0 .STK-MED ONE 05/19 1245 DC .ROUTE Propranolol HCl 10 MG DAILY 05/18 09 AC 05/19 PO 0901 Sodium Chloride 1,000 ML Q13H 09/14 2300 DC 05/19 IV 0100 Last 24 Hrs of Lab/Shaji Results Last 24 Hrs of Labs/Mics: Laboratory Tests 05/19/18 0914: Anion Gap 8, Estimated GFR 25 L, BUN/Creatinine Ratio 16.0, CBC w Diff NO MAN DIFF REQ, RBC 3.34 L, MCV 92.6, MCH 30.9, MCHC 33.4, RDW 14.4, MPV 7.8, Gran % 65.5, Lymphocytes % 22.7, Monocytes % 8.4, Eosinophils % 3.1, Basophils % 0.3, Absolute Granulocytes 4.8, Absolute Lymphocytes 1.7, Absolute Monocytes 0.6, Absolute Eosinophils 0.2, Absolute Basophils 0 Assessment/Plan Assessment: Patient is 72-year-old female with past medical history significant for hyperthyroidism on methimazole, anxiety/depression, recent episode of acute confusion presented with an at that episode of sudden onset confusion. By the time of interview patient is alert oriented 3 and aVF that she is becoming more forgetful lately. She did not eat or drink anything since morning today. Vital signs at presentation did show blood pressure of 190/98 mmHg, physical examination unremarkable. Labs are significant for history H&H 9.9/29.1, sodium 136, creatinine 2.4 from 1.2. U tox negative. UA shows trace leukocyte esterase white count of 15. Plan Admitted to general medicine floor Delirium Likely secondary to begning of cognitive decline - aging vs Alzheimers. Less likely lewy body as no hallucinations, less likely frontotemporal as no behavioural changes. * IV hydration * Periodic Reorientation * Candidate for HELP program * Follow-up urine culture to rule out infection as a cause * Merits geriatric evaluation as outpatient Acute kidney injury from obstructive uropathy - postrenal 1.1 cm obstructive ureteral stone on left side. Underwent cystoscopy with stenting today. * continue IV hydration * Check BEP again * Follow-up urine culture H/o Hyperthyroidism Continue methimazole, check TSH, free T4. Continue home medications - includes dicyclomine, propronolol DVT prophylaxis Subcutaneous heparin CODE STATUS Full code tried to reach out son regarding informing about procedure, not answering. Left a voice mail. Problem List: 1. Dehydration 2. Weakness 3. Acute renal failure 4. Change in mental status Pain Ratin Pain Location: n/a Pain Goal: Pain 4 or less Pain Plan: tylenol pnr Tomorrow's Labs & Rationales: cbc bep Michelle Hobbs 05/19/18 1240: Attending MD Review Statement Attending Statement Attending MD Statement: examined this patient, discuss w/resident/PA/[facility] [employer], agreed w/resident/PA/[facility], discussed with family, reviewed EMR data (avail), discussed with nursing, discussed with case mgmt, reviewed images, amended to note Attending Assessment/Plan: 72-year-old female with a significant past medical history for nephrolithiasis status post lithotripsy, anxiety, depression and hyperthyroidism was BIBA with chief concern of confusion. Patient lives with her son and he found her to be confused. chest x-ray without acute changes, and CT head without acute changes. Renal USG noted with hydronephrosis unilateral 2/2 obstruction. Hyponatremia with imrpovement after fluids. Keep close watch on sodium s/p urologic procedure. MELISA on ?CKD 2/2 obstructive uropathy. Follow nephrology and urology consulted with plan for stent placement today. C/w gentle hydration. Confusion/altered mental status with risk of fall and urinary incontinence: MRI brain pending (repeated episodes) Plan of care dwed patient/bedside in agreement.
[2018-05-19 10:29] LABS: ABSOLUTE BASOPHIL COUNT 0 /CUMM (0.0-0.2); ABSOLUTE EOSINOPHIL COUNT 0.2 /CUMM (0.0-0.7); ABSOLUTE GRANULOCYTE CT 4.8 /CUMM (1.4-6.5); ABSOLUTE LYMPH COUNT 1.7 /CUMM (1.2-3.4); ABSOLUTE MONOCYTE COUNT 0.6 /CUMM (0.10-0.60); BASOPHIL % 0.3 % (0.0-2.0); EOSINOPHIL % 3.1 % (0-5); GRANULOCYTE % 65.5 % (42.2-75.2); HEMATOCRIT 30.9 % (37-47); MEAN CORPUSCULAR HGB 30.9 PG (27.0-31.0); MEAN CORPUSCULAR HGB CONC 33.4 G/DL (33.0-37.0); MEAN CORPUSCULAR VOLUME 92.6 FL (81.0-99.0); MEAN PLATELET VOLUME 7.8 FL (7.4-10.4); PLATELET COUNT 389 /CUMM (130-400); RBC DISTRIBUTION WIDTH 14.4 % (11.5-14.5); RED BLOOD CELL CT 3.34 /CUMM (4.20-5.40); WHITE BLOOD CELL COUNT 7.3 /CUMM (4.8-10.8)
--- NOTE | 2018-05-19 10:54 | Cons- Urology ---
General Information and HPI Consulting Request Date of Consult: 05/19/18 Requested By: Scooby Palacios MD Reason for Consult: left hydronephrosis Source of Information: patient Exam Limitations: no limitations History of Present Illness: This is a 72 yo obese female, ex-smoker with PMH of nephrolithiasiswith ESWL hx , anxiety/ depression and hyperthyroidism BIBA for confusion. Patient lives with her son who found her to be confused yest morning. She is usually alert oriented 3 and takes care of herself, takes her own medications. She reports no flank pain, N/V/F/C, urinary complaints except incontinence or hematuria. Of note, she has been taking NSAIDs for knee pain frequently recently. On her lab work, she had elevated CR on unclear etiology. She had a renal US which showed left hydronephrosis and right kidney atrophy with no bilateral ureteral jets. A subsequent CT scan revealed a left 1.1cm stone at L4 with hydronephrosis behind it. Allergies/Medications Allergies: Coded Allergies: NO KNOWN ALLERGIES (NONE 12/19/17) NKA per [facility] antibiotic order sheet. -- Jeri 04/23/15 Home Med List: Acetaminophen 500 MG TABLET 2 TAB PO Q6P PRN PAIN/FEVER (Reported) Cholecalciferol (Vitamin D3) (Vitamin D3) (Unknown Strength) CAPSULE (Unknown Dose) PO DAILY SUPPLEMENT (Reported) Citalopram Hydrobromide (Citalopram HBr) 20 MG TABLET 1 TAB PO DAILY DEPRESSION (Reported) Dicyclomine HCl 10 MG CAPSULE GI (Reported) Methimazole 5 MG TABLET 1 TAB PO EOD HYPOTHYROID (Reported) Propranolol HCl 10 MG TABLET 1 TAB PO DAILY TREMOR / ANXIETY (Reported) Current Medications: Current Medications Sig/Carrie Start time Last Medication Dose Route Stop Time Status Admin Acetaminophen 325 MG Q6P PRN 05/18 1700 AC PO Cholecalciferol 1,000 IU DAILY 05/18 0900 AC 05/19 PO 0900 Citalopram 20 MG DAILY 05/18 09 AC 05/19 Hydrobromide PO 0900 Dextrose/Sodium 1,000 ML Q13H 05/19 1030 AC Chloride IV Methimazole 5 MG Q48H 05/20 0900 AC PO Propranolol HCl 10 MG DAILY 05/18 0900 AC 05/19 PO 0901 Sodium Chloride 1,000 ML Q13H 05/17 2300 DC 05/19 IV 0100 Past History Medical History Neurological: NONE EENT: NONE Cardiovascular: NONE Respiratory: NONE Gastrointestinal: NONE Hepatic: NONE Renal: KIDNEY STONES Musculoskeletal: NONE Psychiatric: anxiety, depression, rule out bereavement disorder alcohol abuse Endocrine: hyperthyroidism Blood Disorders: NONE Cancer(s): NONE LEAD PYTHON DEVELOPER/Reproductive: NONE Surgical History Pertinent Surgical History: non-contributory Family History Relations & Conditions If Any: Relation not specified for: *No pertinent family history Psychosocial History Where Do You Live? Home Who Do You Live With? child Services at Home: Physical Therapy Smoking Status: Former Smoker Functional Ability ADLs Independent: dressing, eating, toileting, bathing. Ambulation: independent IADLs Needs Assist: shopping, housework, finances, food prep, telephone, transportation, medication admin. Review of Systems Review of Systems Constitutional: Reports: no symptoms. EENTM: Reports: no symptoms. Cardiovascular: Reports: no symptoms. Respiratory: Reports: no symptoms. GI: Reports: no symptoms. Genitourinary: Reports: no symptoms. Musculoskeletal: Reports: no symptoms. Skin: Reports: no symptoms. Neurological/Psychological: Reports: no symptoms, anxiety, confusion. Hematologic/Endocrine: Reports: no symptoms. Immunologic/Allergic: Reports: no symptoms. Exam & Diagnostic Data Vital Signs and I&O Vital Signs Date Time Temp Pulse Resp B/P B/P Pulse O2 O2 Flow FiO2 Mean Ox Delivery Rate 05/19 0901 98.4 113 22 130/88 05/19 0553 98.4 113 22 130/88 95 Room Air 05/19 0000 96 Room Air 05/18 2221 98.7 91 20 130/80 96 05/18 1352 97.8 79 20 130/60 97 Room Air Intake & Output 05/19 1600 05/19 0800 05/19 0000 05/18 1600 05/18 0800 05/18 0000 Intake Total 601 241 7183 487.5 Output Total 600 460 950 750 200 Balance 200 380 570 -262.5 -200 Intake, IV 800 600 800 487.5 Intake, Oral 0 240 720 Number 0 1 Bowel Movements Output, Urine 600 460 950 750 200 Patient 126.099 kg Weight Weight Bed scale Measurement Method Physical Exam General Appearance: well developed/nourished, no apparent distress, alert, awake , comfortable Head: atraumatic, normal appearance Eyes: Bilateral: normal appearance. Ears, Nose, Throat: normal ENT inspection Neck: normal inspection Gastrointestinal: soft, non-tender Rectal: deferred Neurologic/Psych: awake, alert Cranial Nerves: normal hearing, normal speech Skin: intact, normal color, warm/dry Last 24 Hours of Labs: Laboratory Tests 05/19 914 Chemistry Sodium Pending Potassium Pending Chloride Pending Carbon Dioxide Pending Anion Gap Pending BUN Pending Creatinine Pending BUN/Creatinine Ratio Pending Hematology CBC w Diff NO MAN DIFF REQ WBC (4.8 - 10.8 /CUMM) 7.3 RBC (4.20 - 5.40 /CUMM) 3.34 L Hgb (12.0 - 16.0 G/DL) 10.3 L Hct (37 - 47 %) 30.9 L MCV (81.0 - 99.0 FL) 92.6 MCH (27.0 - 31.0 PG) 30.9 MCHC (33.0 - 37.0 G/DL) 33.4 RDW (11.5 - 14.5 %) 14.4 Plt Count (130 - 400 /CUMM) 389 MPV (7.4 - 10.4 FL) 7.8 Gran % (42.2 - 75.2 %) 65.5 Lymphocytes % (20.5 - 51.1 %) 22.7 Monocytes % (1.7 - 9.3 %) 8.4 Eosinophils % (0 - 5 %) 3.1 Basophils % (0.0 - 2.0 %) 0.3 Absolute Granulocytes (1.4 - 6.5 /CUMM) 4.8 Absolute Lymphocytes (1.2 - 3.4 /CUMM) 1.7 Absolute Monocytes (0.10 - 0.60 /CUMM) 0.6 Absolute Eosinophils (0.0 - 0.7 /CUMM) 0.2 Absolute Basophils (0.0 - 0.2 /CUMM) 0 Imaging Results: Real-time imaging of the kidneys and bladder. FINDINGS: RIGHT KIDNEY: 8.5 x 3.7 x 3.4 cm cm (SAG x AP x TRV). Mild, diffuse atrophy of the renal cortex. The cortical echotexture is normal. No focal parenchymal lesion, nephrolithiasis or hydronephrosis. LEFT KIDNEY: 10.3 x 5.6 x 4.6 cm (SAG x AP x TRV). The kidney has normal cortical thickness and echotexture. No evidence of nephrolithiasis. There is moderate hydronephrosis. BLADDER: Urinary bladder is distended to an estimated volume of 52 mL. The right and left ureteral jets were not identified during the time of imaging. No bladder mass or calculi. IMPRESSION: - No evidence of nephrolithiasis. - Moderate left hydronephrosis is of uncertain cause. - Mild atrophy of the right kidney. CT abd/pelvis KIDNEYS AND URETERS: Mild atrophy of the right kidney. There are several calyceal stones of the right kidney. The stones were not depicted on the ultrasound images of 05/18/2018. The largest calculi in the interpolar region and right lower pole measure up to 0.7 cm. The calculi have attenuation in the range of 600-700 HU. The right ureter is unremarkable. Left kidney, which is normal in size, has multiple small calyceal stones, largest measuring up to 0.4 cm in maximum dimension. Moderate left hydronephrosis and proximal hydroureter caused by an obstructing 0.7 x 1.1 x 1.6 cm calculus at the L4 level of the ureter. This calculus, which has attenuation of approximately 1,150 HU, is visible on the side puller image. BLADDER: Unremarkable. Assessment/Plan Assessment/Plan This is a 72 yo obese female, ex-smoker with PMH of nephrolithiasiswith ESWL hx, anxiety/ depression and hyperthyroidism BIBA for confusion with elevated CR and left hydronephrosis due to a left obstructing stone. She has been NPO/IVF. She will be taken to the OR for a cystoscopy and left stent placement. Risks, benefits and alternatives were given to the patient. Consent was signed. She will need with Urology as an outpatient. She can return to her Urologist. Consult Acknowledgment - Thank you for your consult request.
--- NOTE | 2018-05-19 13:26 | Operative Report ---
Operative/Inv Procedure Report Surgery Date: 05/19/18 Name of Procedure: cysto, left stent placement Pre-Operative Diagnosis: left hydronephrosis sec obstructing stone Post-Operative Diagnosis: same Estimated Blood Loss: scant Surgeon/Weed Science Research Technician: Scooby Palacios MD Anesthesia: laryngeal mask airway Drains: 6x24cm stent Complications: none Condition: stable Operative Indication: left hdyro sec obstructing stone Operative/Procedure Note Note: Is a 72-year-old female with a history of bilateral kidney stones who was admitted for confusion and on workup was found to have left hydronephrosis on a renal ultrasound and confirmed left hydronephrosis secondary to an obstructing 1.1 cm mid ureteral stone. She had no left flank pain however her creatinine was elevated. She also had a recent history of frequent NSAID intake. Given her history of kidney stones in the hydronephrosis and elevated creatinine she was consented for left cystoscopy stent placement with cystoscopy. She was given the risks benefits and alternatives of the surgery and she wished to proceed. All questions were answered. Consent was signed. She was identified in the holding area and brought to the operating room and placed on the operating table in the supine position. Timeout was performed. She was prepped and draped in the standard sterile fashion. Fluoroscopy was available. A Solo Bard guidewire was placed up the left ureter without difficulty after some resistance in the distal ureter. She had unusual anatomy in that she has a very large body habitus and morbidly obese with a shortened trunk. The 6 x 22 cm ureteral stent was placed over the wire and was sitting much lower than where it was presumably the renal pelvis. As a result the stent was removed and a 5 [place] tiger tail was placed over this solo guidewire and a retropyelogram was performed. However the pyelogram did not go beyond the obstructing stone and so the area of the renal pelvis position could not be elucidated. The Solo wire was then used again to place a 6 x 24 cm ureteral stent and was in similar position again but a little bit higher up. It was left in place and the proximal pigtail was presumably in the renal pelvis and the distal end in the bladder. The bladder was emptied. She was cleaned of the Betadine solution. She tolerated procedure well. She was transferred to recovery room stable condition. Findings: Left 1.1 cm obstructing ureteral stone in the mid ureter. No hydronephrosis distal to the ureteral stone but unable to elucidate the renal pelvic anatomy due to the obstructing stone and contrast not getting beyond it. Discharge Disposition: PACU
--- NOTE | 2018-05-19 15:29 | RADIOLOGY REPORT ---
EXAMINATION: XR URETEROSCOPY OR CLINICAL INFORMATION: 72-year-old female with urolithiasis and urinary tract obstruction. Cystography and stent placement. COMPARISON: CT images of abdomen pelvis from 05/18/2018. TECHNIQUE: Intraoperative C-arm fluoroscopic imaging of the abdomen was utilized at time of left retrograde ureterography and stent placement. Please refer to the operative report. NUMBER OF SAVED IMAGES: 10. FLUOROSCOPY TIME: 23.7 seconds. DOSE: 460.54 mrad. FINDINGS: The initial images show lack passage of retrograde contrast into the proximal ureter by the obstructing calculus. Subsequent images were acquired during deployment of a left ureteral stent. Please refer to the operative report. IMPRESSION: Intraoperative fluoroscopic imaging was required for retrograde ureterography and stent placement.
[2018-05-19 15:45] VITALS: BP 134/86
[2018-05-19 20:13] VITALS: BP 118/70
[2018-05-20 06:28] VITALS: BP 114/70
--- NOTE | 2018-05-20 11:38 | PN- Att Addend ---
Attending Addendum Attending Brief Note Patient seen and examined, now back to baseline in terms of her mental state. She is AO 3. Patient was originally scheduled for a brain MRI but I do not think that it is needed anymore as mental state is returned to normal. Patient was found to have acute on chronic renal failure secondary to obstructive uropathy. She status post cystoscopy left ureteral stent placement POD #1 today. Vital Signs Date Time Temp Pulse Resp B/P B/P Pulse O2 O2 Flow FiO2 Mean Ox Delivery Rate 05/20 1003 80 120/70 05/20 0628 97.4 87 20 114/70 96 Room Air 05/19 2013 98.2 87 18 118/70 95 Room Air 05/19 1545 98.3 76 20 134/86 96 on exam; aox3, nad. cv; s1,s2, rrr resp; clear abd; soft, nt, bs+ ext; trace edema Laboratory Tests 05/20 1045 Chemistry Sodium Pending Potassium Pending Chloride Pending Carbon Dioxide Pending Anion Gap Pending BUN Pending Creatinine Pending BUN/Creatinine Ratio Pending Hematology CBC w Diff Pending WBC Pending RBC Pending Hgb Pending Hct Pending MCV Pending MCH Pending MCHC Pending RDW Pending Plt Count Pending MPV Pending A/P: 72 y/o F with pmh sig fort nephrolithiasis status post lithotripsy, anxiety , depression and hyperthyroidism admitted with acute confusion. Patient also found to have acute on chronic renal failure secondary to obstructive uropathy from nephrolithiasis now status post cystoscopy and left ureteral stent placement postop day #1 today. Fact that the patient's mental status returned to normal. She had a negative CT head. She had a negative CT angiogram neck and head as well as CT head done in December 2017. Her confusion was most likely secondary to acute renal failure on top of chronic kidney disease and urinary obstruction. At this point I do not think that MRI of the brain is indicated. She cannot get gadolinium secondary to acute renal failure anyways. We will cancel the order for MRI for now. We will repeat her vitamin B12. We will continue to monitor her creatinine while she is getting IV fluids. We will continue to avoid nephrotoxic medications. Her mental status definitely improved. Will continue to avoid any sedatives, narcotics. Patient will be seen by physical therapy and if the creatinine improved by tomorrow and she can likely be discharged tomorrow
[2018-05-20 12:16] LABS: ABSOLUTE BASOPHIL COUNT 0 /CUMM (0.0-0.2); ABSOLUTE EOSINOPHIL COUNT 0.1 /CUMM (0.0-0.7); ABSOLUTE GRANULOCYTE CT 7.6 /CUMM (1.4-6.5); ABSOLUTE LYMPH COUNT 2.2 /CUMM (1.2-3.4); ABSOLUTE MONOCYTE COUNT 0.8 /CUMM (0.10-0.60); BASOPHIL % 0.3 % (0.0-2.0); EOSINOPHIL % 0.8 % (0-5); GRANULOCYTE % 70.5 % (42.2-75.2); HEMATOCRIT 28.6 % (37-47); MEAN CORPUSCULAR HGB CONC 33.6 G/DL (33.0-37.0); MEAN CORPUSCULAR VOLUME 92.4 FL (81.0-99.0); MEAN PLATELET VOLUME 7.7 FL (7.4-10.4); PLATELET COUNT 389 /CUMM (130-400); RBC DISTRIBUTION WIDTH 14.2 % (11.5-14.5); WHITE BLOOD CELL COUNT 10.7 /CUMM (4.8-10.8)
--- NOTE | 2018-05-20 12:22 | PN- Housestaff ---
Subjective Follow-up For: jo ann on ckd Subjective: saw pt at bedside. she seemed much better today. no complaints. cancelling MRI that was planend for today as her AMS has resovled. Review of Systems Constitutional: Denies: chills, malaise. EENTM: Reports: no symptoms. Cardiovascular: Denies: chest pain. Respiratory: Reports: no symptoms. Gastrointestinal: Reports: no symptoms. Genitourinary: Reports: no symptoms. Musculoskeletal: Reports: no symptoms. Objective Last 24 Hrs of Vital Signs/I&O Vital Signs Date Time Temp Pulse Resp B/P B/P Pulse O2 O2 Flow FiO2 Mean Ox Delivery Rate 05/20 1413 98.8 79 18 110/70 96 Room Air 05/20 1003 80 120/70 05/20 0628 97.4 87 20 114/70 96 Room Air 05/19 2013 98.2 87 18 118/70 95 Room Air Intake & Output 05/20 1600 05/20 0800 05/20 0000 Intake Total 360 1005 Output Total 140 250 Balance -594 334 4893 Intake, IV 525 Intake, Oral 360 480 Output, Urine 140 250 Physical Exam General Appearance: Alert, Oriented X3, Cooperative Skin: No Significant Lesion HEENT: Atraumatic, PERRLA, Mucous Membr. moist/pink Cardiovascular: Regular Rate, Normal S1, Normal S2 Lungs: Clear to Auscultation Abdomen: Soft Extremities: edema Assessment/Plan Assessment: Patient is 72-year-old female with past medical history significant for hyperthyroidism on methimazole, anxiety/depression, recent episode of acute confusion presented with an at that episode of sudden onset confusion. By the time of interview patient is alert oriented 3 and aVF that she is becoming more forgetful lately. She did not eat or drink anything since morning today. Vital signs at presentation did show blood pressure of 190/98 mmHg, physical examination unremarkable. Labs are significant for history H&H 9.9/29.1, sodium 136, creatinine 2.4 from 1.2. U tox negative. UA shows trace leukocyte esterase white count of 15. -- PLAN Delirium: Likely secondary to begning of cognitive decline - aging vs Alzheimers. Less likely lewy body as no hallucinations, less likely frontotemporal as no behavioural changes. She looks much better today. * IV hydration * Periodic Reorientation * Candidate for HELP program * Follow-up urine culture to rule out infection as a cause * Merits geriatric evaluation as outpatient * Cancel MRI Acute kidney injury from obstructive uropathy - postrenal 1.1 cm obstructive ureteral stone on left side. Underwent cystoscopy with stenting yesterday. Having good Uop. Unfortunately Cr up to 2.1 * continue IV hydration * Check BEP again * Follow-up urine culture H/o Hyperthyroidism: Continue methimazole Continue home medications - includes dicyclomine, propronolol DVT prophylaxis Subcutaneous heparin CODE STATUS Full code Problem List: 1. Confusion and disorientation Pain Ratin Pain Location: none Pain Goal: Remain pain free Pain Plan: none Tomorrow's Labs & Rationales: cbc bep
[2018-05-20 14:13] VITALS: BP 110/70
[2018-05-20 22:18] VITALS: BP 130/74
--- NOTE | 2018-05-21 06:41 | PN- Housestaff ---
Subjective Follow-up For: CNFUSION R. HYDRONEPHROSIS Subjective: Saw pt at bedside this AM. Her PIV had stopped working again. She didn't get fluids for much of hte night. None of the house staff aware. No labs drawn this AM. Pt states that she wants to go home. Review of Systems Constitutional: Denies: chills, fever, weakness. EENTM: Reports: no symptoms. Cardiovascular: Denies: chest pain. Respiratory: Denies: hemoptysis, short of breath. Gastrointestinal: Denies: abdominal pain. Genitourinary: Reports: frequency. Denies: dysuria, pain. Musculoskeletal: Reports: back pain. Objective Last 24 Hrs of Vital Signs/I&O Vital Signs Date Time Temp Pulse Resp B/P B/P Pulse O2 O2 Flow FiO2 Mean Ox Delivery Rate 05/21 0800 99.1 99 20 144/90 97 Room Air 05/21 0000 95 Room Air 05/20 2218 98.6 82 18 130/74 95 Room Air 05/20 1413 98.8 79 18 110/70 96 Room Air Intake & Output 05/21 1600 05/21 0800 05/21 0000 Intake Total 350 490 Output Total 200 500 501 Balance -200 -150 -11 Intake, IV 250 250 Intake, Oral 100 240 Number 0 0 Bowel Movements Output, Stool 1 Output, Urine 200 500 500 Physical Exam General Appearance: Alert, Oriented X3, No Acute Distress HEENT: Atraumatic, PERRLA, EOMI Cardiovascular: Regular Rate, Normal S1, Normal S2, No Murmurs Lungs: Normal Air Movement Abdomen: Soft, No Tenderness Current Medications: Current Medications Sig/Carrie Start time Last Medication Dose Route Stop Time Status Admin Acetaminophen 325 MG Q6P PRN 05/18 1700 AC PO Cholecalciferol 1,000 IU DAILY 05/18 09 AC 05/21 PO 0906 Citalopram 20 MG DAILY 05/18 09 AC 05/21 Hydrobromide PO 09 Cyanocobalamin 1,000 MCG DAILY 05/20 1019 DC 05/21 IM 05/21 0901 0905 Methimazole 5 MG Q48H 05/20 09 AC 05/20 PO 1003 Patient Medication 1 ED ONE ONE 05/20 1345 DC Teaching ED 05/20 1346 Propranolol HCl 10 MG DAILY 05/18 09 AC 09/18 PO 0907 Sodium Chloride 1,000 ML Q13H 05/20 1030 AC 05/20 IV 1205 Last 24 Hrs of Lab/Shaji Results Last 24 Hrs of Labs/Mics: Laboratory Tests 05/21/18 1209: Sodium Pending, Potassium Pending, Chloride Pending, Carbon Dioxide Pending, Anion Gap Pending, BUN Pending, Creatinine Pending, BUN/Creatinine Ratio Pending , CBC w Diff Pending, WBC Pending, RBC Pending, Hgb Pending, Hct Pending, MCV Pending, MCH Pending, MCHC Pending, RDW Pending, Plt Count Pending, MPV Pending Assessment/Plan Assessment: Patient is 72-year-old female with past medical history significant for hyperthyroidism on methimazole, anxiety/depression, recent episode of acute confusion presented with sudden on set confusion and found to have MELISA. Renal US showed r. hydronephrosis and pt went for cystoscopy and stent placement. This is POD 2 and pt is AOX3,but we are waiting for her creatinine to improve. -- PLAN Delirium: Likely secondary to begning of cognitive decline - aging vs Alzheimers. Less likely lewy body as no hallucinations, less likely frontotemporal as no behavioural changes. She looks much better today. * Resolved Acute kidney injury from obstructive uropathy - postrenal 1.1 cm obstructive ureteral stone on left side. Underwent cystoscopy with stenting yesterday. Having good Uop. Unfortunately Cr up to 2.1. Pending this AM * continue IV hydration * Check BEP again * Follow-up urine culture H/o Hyperthyroidism: Continue methimazole Continue home medications - includes dicyclomine, propronolol DVT prophylaxis Subcutaneous heparin CODE STATUS Full code Problem List: 1. Change in mental status 2. Acute renal failure Pain Ratin Pain Location: none Pain Goal: Remain pain free Pain Plan: none Tomorrow's Labs & Rationales: bep
[2018-05-21 08:00] VITALS: BP 144/90
--- NOTE | 2018-05-21 10:14 | PN- Att Addend ---
Attending Addendum Attending Brief Note Patient seen and examined, she is somewhat upset. Her IV was not functioning overnight therefore she did not receive any IV fluids. We could not draw the blood work this morning because she is a very hard stick. Vital Signs Date Time Temp Pulse Resp B/P B/P Pulse O2 O2 Flow FiO2 Mean Ox Delivery Rate 05/21 0800 99.1 99 20 144/90 97 Room Air 05/21 0000 95 Room Air 05/20 2218 98.6 82 18 130/74 95 Room Air 05/20 1413 98.8 79 18 110/70 96 Room Air on exam; aox3, nad. cv; s1,s2, rrr resp; clear abd: soft, nt, bs+ ext; no edema Laboratory Tests 05/20 1045 Chemistry Sodium (137 - 145 mmol/L) 139 Potassium (3.5 - 5.1 mmol/L) 3.8 Chloride (98 - 107 mmol/L) 107 Carbon Dioxide (22 - 30 mmol/L) 23 Anion Gap (5 - 16) 9 BUN (7 - 17 mg/dL) 30 H Creatinine (0.5 - 1.0 mg/dL) 2.1 H Estimated GFR (>60 ml/min) 23 L BUN/Creatinine Ratio (7 - 25 %) 14.3 Hematology CBC w Diff NO MAN DIFF REQ WBC (4.8 - 10.8 /CUMM) 10.7 RBC (4.20 - 5.40 /CUMM) 3.10 L Hgb (12.0 - 16.0 G/DL) 9.6 L Hct (37 - 47 %) 28.6 L MCV (81.0 - 99.0 FL) 92.4 MCH (27.0 - 31.0 PG) 31.0 MCHC (33.0 - 37.0 G/DL) 33.6 RDW (11.5 - 14.5 %) 14.2 Plt Count (130 - 400 /CUMM) 389 MPV (7.4 - 10.4 FL) 7.7 Gran % (42.2 - 75.2 %) 70.5 Lymphocytes % (20.5 - 51.1 %) 20.6 Monocytes % (1.7 - 9.3 %) 7.8 Eosinophils % (0 - 5 %) 0.8 Basophils % (0.0 - 2.0 %) 0.3 Absolute Granulocytes (1.4 - 6.5 /CUMM) 7.6 H Absolute Lymphocytes (1.2 - 3.4 /CUMM) 2.2 Absolute Monocytes (0.10 - 0.60 /CUMM) 0.8 H Absolute Eosinophils (0.0 - 0.7 /CUMM) 0.1 Absolute Basophils (0.0 - 0.2 /CUMM) 0 A/P; 72 y/o F with pmh sig fort nephrolithiasis status post lithotripsy, anxiety , depression and hyperthyroidism admitted with acute confusion. Patient also found to have acute on chronic renal failure secondary to obstructive uropathy from nephrolithiasis now status post cystoscopy and left ureteral stent placement pos procedure day #2 today. Unfortunately patient lost her IV access and blood could not be drawn this morning. Awaiting IV access as well as blood draw from this morning. Patient did not receive IV fluids overnight but will follow up on the creatinine. If the creatinine is back to baseline then she can be discharged home today. If on the other hand creatinine remains in the high range, will consult nephrology. Continue the rest of the management. Please add pharmacologic DVT prophylaxis iwth hep sq if patient ends up staying.
--- NOTE | 2018-05-21 11:12 | PN- Nephrology ---
Assessment/Plan Nephrology Assessment: 1. Stone disease. She reports having stones several years ago with Dr. Morales. She is surprised that she had a stone this time without pain. Also of note, she has been followed in the past by Dr. Morales. Dr. Kahn placed the stent. It is not clear that Dr. Morales is aware that the patient is here. 2. Change in mental status her degree of azotemia such that I doubt very much that it was playing any sort of role in her change in mental status. This seems highly unlikely. Generally, even in the acute setting, changes in mental status attributable to renal failure are generally not seen until the serum creatinine is 6.0, 7.0 or higher. Certainly in the chronic situation, a better reflection is the BUN. Changes in mental status or generally not seen until the blood urea nitrogen is greater than 100 and somewhat argue greater than 150. Calling this uremic encephalopathy is highly questionable. Being specific in this regard is important since the treatment for changes in mental status caused by renal failure is hemodialysis. To suggest that this woman with a serum creatinine of 2.4 could benefit from renal replacement therapy upon admission, is not very likely at all. 3. Acute kidney injury. As reported in Dr. Barboza's original consult, the patient had been using Advil intermittently. This may not be the full cause of her acute kidney injury but it certainly does not help. Suggestion: 1. Would touch base with Dr. Morales with regards to future plans. 2. Encourage p.o. fluids 3. Continue with strict intakes and outputs and daily weights. 4. Continue with daily labs Subjective Subjective: Patient seen. Wondering if she is going home. She tells me she has not been seen by Dr. Morales. Objective Vital Signs and I&Os Vital Signs Date Time Temp Pulse Resp B/P B/P Pulse O2 O2 Flow FiO2 Mean Ox Delivery Rate 05/21 0800 99.1 99 20 144/90 97 Room Air 05/21 0000 95 Room Air 05/20 2218 98.6 82 18 130/74 95 Room Air 05/20 1413 98.8 79 18 110/70 96 Room Air Intake & Output 05/21 1600 05/21 0400 05/20 1600 05/20 0400 05/19 1600 05/19 0400 Intake Total 350 355 277 6238 1130 840 Output Total 600 601 540 500 560 Balance -250 -547 707 3938 630 280 Intake, IV 250 250 270 965 2547 600 Intake, Oral 100 240 610 480 30 240 Number 0 0 0 1 Bowel Movements Output, Stool 1 Output, Urine 600 600 540 500 560 Physical Exam General Appearance: well developed/nourished, no apparent distress, alert, awake , comfortable, obese Head: atraumatic, normal appearance Ears, Nose, Throat: normal pharynx, normal ENT inspection, hearing grossly normal, moist mucus membranes Neck: normal inspection, supple Respiratory: normal breath sounds, chest non-tender Cardiovascular: regular rate/rhythm, edema, normal peripheral pulses Abdomen: normal bowel sounds, soft, non-tender, no organomegaly Extremities: normal inspection, normal capillary refill Results Pertinent Lab Results: Laboratory Tests 05/20 05/19 1045 0914 Chemistry Sodium (137 - 145 mmol/L) 139 139 Potassium (3.5 - 5.1 mmol/L) 3.8 4.2 Chloride (98 - 107 mmol/L) 107 109 H Carbon Dioxide (22 - 30 mmol/L) 23 22 Anion Gap (5 - 16) 9 8 BUN (7 - 17 mg/dL) 30 H 32 H Creatinine (0.5 - 1.0 mg/dL) 2.1 H 2.0 H Estimated GFR (>60 ml/min) 23 L 25 L BUN/Creatinine Ratio (7 - 25 %) 14.3 16.0 Hematology CBC w Diff NO MAN DIFF REQ NO MAN DIFF REQ WBC (4.8 - 10.8 /CUMM) 10.7 7.3 RBC (4.20 - 5.40 /CUMM) 3.10 L 3.34 L Hgb (12.0 - 16.0 G/DL) 9.6 L 10.3 L Hct (37 - 47 %) 28.6 L 30.9 L MCV (81.0 - 99.0 FL) 92.4 92.6 MCH (27.0 - 31.0 PG) 31.0 30.9 MCHC (33.0 - 37.0 G/DL) 33.6 33.4 RDW (11.5 - 14.5 %) 14.2 14.4 Plt Count (130 - 400 /CUMM) 389 389 MPV (7.4 - 10.4 FL) 7.7 7.8 Gran % (42.2 - 75.2 %) 70.5 65.5 Lymphocytes % (20.5 - 51.1 %) 20.6 22.7 Monocytes % (1.7 - 9.3 %) 7.8 8.4 Eosinophils % (0 - 5 %) 0.8 3.1 Basophils % (0.0 - 2.0 %) 0.3 0.3 Absolute Granulocytes (1.4 - 6.5 /CUMM) 7.6 H 4.8 Absolute Lymphocytes (1.2 - 3.4 /CUMM) 2.2 1.7 Absolute Monocytes (0.10 - 0.60 /CUMM) 0.8 H 0.6 Absolute Eosinophils (0.0 - 0.7 /CUMM) 0.1 0.2 Absolute Basophils (0.0 - 0.2 /CUMM) 0 0
[2018-05-21 12:33] LABS: MEAN PLATELET VOLUME 8.6 FL (7.4-10.4)
[2018-05-21 12:38] LABS: ABSOLUTE BASOPHIL COUNT 0 /CUMM (0.0-0.2); ABSOLUTE EOSINOPHIL COUNT 0.3 /CUMM (0.0-0.7); ABSOLUTE GRANULOCYTE CT 7.6 /CUMM (1.4-6.5); ABSOLUTE LYMPH COUNT 1.8 /CUMM (1.2-3.4); ABSOLUTE MONOCYTE COUNT 0.7 /CUMM (0.10-0.60); BASOPHIL % 0.3 % (0.0-2.0); EOSINOPHIL % 2.6 % (0-5); GRANULOCYTE % 72.9 % (42.2-75.2); HEMATOCRIT 33.2 % (37-47); MEAN CORPUSCULAR HGB CONC 33.9 G/DL (33.0-37.0); MEAN CORPUSCULAR VOLUME 91.5 FL (81.0-99.0); PLATELET COUNT 446 /CUMM (130-400); RBC DISTRIBUTION WIDTH 14.5 % (11.5-14.5); RED BLOOD CELL CT 3.63 /CUMM (4.20-5.40); WHITE BLOOD CELL COUNT 10.4 /CUMM (4.8-10.8)
[2018-05-21 13:58] VITALS: BP 100/70
[2018-05-21 22:47] VITALS: BP 126/80
[2018-05-22 06:45] VITALS: BP 130/80
[2018-05-22] MEDS ORDERED: VITAMIN B-121000 MC3 PO ×2 (06:55→12:12)
--- NOTE | 2018-05-22 06:59 | Patient Discharge Instructions ---
Discharge Instructions General Discharge Information You were seen/treated for: 1. Hydronephrosis 2. Acute kidney injury 3. Altered Mental Status 4. Vitamin B 12 deficiency You had these procedures: 1.Cystoscopy with stent placement Watch for these problems: 1. Fever 2. Excessive bleeding and pain on urination 3. Decrease in urine volume 4. Altered mental status Special Instructions: 1. Please follow up with your PCP in one week 2. Let them know about your B12 deficiency, you might need injection therapy instead of oral 3. Please follow up with Dr. Morales; the stent needs to come out. 4. Please get a kidney function lab drawn in one week 5. Please avoid all NSAID and Ibuprofen to preserve your renal function Diet Continue normal diet: Yes Activity Full Activity/No Limits: No Activity Self Limited: Yes Acute Coronary Syndrome Inclusion Criteria At DC or during hospital stay patient has or had the following: ACS DIAGNOSIS No Discharge Core Measures Meds if any: Prescribed or Continued at Discharge Meds if any: NOT Prescribed or Continued at Discharge Congestive Heart Failure Inclusion Criteria At DC or during hospital stay patient has or had the following: CHF DIAGNOSIS No Discharge Core Measures Meds if any: Prescribed or Continued at Discharge Meds if any: NOT Prescribed or Continued at Discharge Cerebrovascular accident Inclusion Criteria At DC or during hospital stay patient has or had the following: CVA/TIA Diagnosis No Discharge Core Measures Meds if any: Prescribed or Continued at Discharge Meds if any: NOT Prescribed or Continued at Discharge Venous thromboembolism Inclusion Criteria VTE Diagnosis No VTE Type NONE VTE Confirmed by (Test) NONE Discharge Core Measures - Per Current guidelines, there needs to be overlap - treatment for the first 5 days of Warfarin therapy. - If discharged on Warfarin prior to 5 days of - overlap therapy, the patient will need to be - assessed for post discharge needs including - *Post discharge parental anticoagulation - *Warfarin and/or parental anticoagulation education - *Follow up date to check INR post discharge At least 5 days overlap therapy as Inpatient No Meds if any: Prescribed or Continued at Discharge Note: Overlap Therapy is Warfarin and Anticoagulant Meds if any: NOT Prescribed or Continued at Discharge
--- NOTE | 2018-05-22 07:23 | PN- Housestaff ---
Mohamud PENA,Krsangeeta 05/22/18 0720: Subjective Follow-up For: MELISA Subjective: Saw pt at bedside this AM. No acute overnight events or complaitns. She finally got fluids overnight as she had good IV access. She states that she slept very well Review of Systems Constitutional: Denies: chills, weakness. Cardiovascular: Denies: chest pain. Respiratory: Reports: no symptoms. Gastrointestinal: Reports: no symptoms. Genitourinary: Reports: no symptoms. Musculoskeletal: Reports: no symptoms. Objective Last 24 Hrs of Vital Signs/I&O Vital Signs Date Time Temp Pulse Resp B/P B/P Pulse O2 O2 Flow FiO2 Mean Ox Delivery Rate 05/22 0645 97.9 103 20 130/80 97 Room Air 05/21 2247 98.2 92 20 126/80 94 Room Air 05/21 1358 97.7 88 20 100/70 99 Room Air Intake & Output 05/22 1600 05/22 0800 05/22 0000 Intake Total 780 400 Output Total 1000 200 Balance -220 200 Intake, IV 600 300 Intake, Oral 180 100 Number 1 Bowel Movements Output, Urine 1000 200 Physical Exam General Appearance: Alert, Oriented X3, Cooperative, No Acute Distress HEENT: Atraumatic, PERRLA, EOMI Cardiovascular: Regular Rate, Normal S1, Normal S2 Lungs: Normal Air Movement Abdomen: Soft Extremities: No Tenderness/Swelling Assessment/Plan Assessment: Patient is 72-year-old female with past medical history significant for hyperthyroidism on methimazole, anxiety/depression, recent episode of acute confusion presented with sudden on set confusion and found to have MELISA. Renal US showed r. hydronephrosis and pt went for cystoscopy and stent placement. This is POD 2 and pt is AOX3,but we are waiting for her creatinine to improve. -- PLAN Delirium: RESOLVED. Likely secondary to begning of cognitive decline - aging vs Alzheimers. Less likely lewy body as no hallucinations, less likely frontotemporal as no behavioural changes. She looks much better today. We decided not to pursue an MRI as her confusion radically improved after cysto and stent placement. Acute kidney injury from obstructive uropathy - postrenal 1.1 cm obstructive ureteral stone on left side. Underwent cystoscopy with stenting with Dr. Kahn over hte weekend. Having good Uop. Cr seems stable at 2.0 now, which is better than when she came in at 2.4, but still not at her baseline of 1.2-1.3. * continue IV hydration * Check BEP again * Follow-up urine culture * Appreciate Nephro recs H/o Hyperthyroidism: Continue methimazole Continue home medications - includes dicyclomine, propronolol DVT prophylaxis Subcutaneous heparin CODE STATUS Full code Problem List: 1. Dehydration 2. Acute renal failure Pain Ratin Pain Location: none Pain Goal: Remain pain free Pain Plan: none Tomorrow's Labs & Rationales: cbc bep Yamila Berkowitz MD 05/22/18 1040: Attending MD Review Statement Attending Statement Attending MD Statement: examined this patient, discuss w/resident/PA/PARK SERVICES SPECIALIST, agreed w/resident/PA/PARK SERVICES SPECIALIST, discussed with nursing, discussed with case mgmt, reviewed images, amended to note Attending Assessment/Plan: Patient seen and examined, and she still waiting to go home. Creatinine from this morning is 1.8 which is better than yesterday. Vital Signs Date Time Temp Pulse Resp B/P B/P Pulse O2 O2 Flow FiO2 Mean Ox Delivery Rate 05/22 0645 97.9 103 20 130/80 97 Room Air 05/21 2247 98.2 92 20 126/80 94 Room Air 05/21 1358 97.7 88 20 100/70 99 Room Air on exam; aox3, nad. cv; s1,s2, rrr resp; clear abd; soft, nt, bs+ ext; no edema Laboratory Tests 05/22 05/21 0935 1740 Chemistry Sodium (137 - 145 mmol/L) 137 137 Potassium (3.5 - 5.1 mmol/L) 4.2 4.4 Chloride (98 - 107 mmol/L) 107 104 Carbon Dioxide (22 - 30 mmol/L) 22 22 Anion Gap (5 - 16) 9 11 BUN (7 - 17 mg/dL) 31 H 32 H Creatinine (0.5 - 1.0 mg/dL) 1.8 H 2.0 H Estimated GFR (>60 ml/min) 28 L 25 L BUN/Creatinine Ratio (7 - 25 %) 17.2 16.0 Hematology CBC w Diff NO MAN DIFF REQ WBC (4.8 - 10.8 /CUMM) 8.9 RBC (4.20 - 5.40 /CUMM) 3.29 L Hgb (12.0 - 16.0 G/DL) 10.2 L Hct (37 - 47 %) 30.0 L MCV (81.0 - 99.0 FL) 91.4 MCH (27.0 - 31.0 PG) 31.0 MCHC (33.0 - 37.0 G/DL) 33.9 RDW (11.5 - 14.5 %) 14.2 Plt Count (130 - 400 /CUMM) 380 MPV (7.4 - 10.4 FL) 7.7 Gran % (42.2 - 75.2 %) 68.8 Lymphocytes % (20.5 - 51.1 %) 18.4 L Monocytes % (1.7 - 9.3 %) 8.9 Eosinophils % (0 - 5 %) 2.8 Basophils % (0.0 - 2.0 %) 1.1 Absolute Granulocytes (1.4 - 6.5 /CUMM) 6.1 Absolute Lymphocytes (1.2 - 3.4 /CUMM) 1.6 Absolute Monocytes (0.10 - 0.60 /CUMM) 0.8 H Absolute Eosinophils (0.0 - 0.7 /CUMM) 0.2 Absolute Basophils (0.0 - 0.2 /CUMM) 0.1 05/21 1209 Chemistry Sodium (137 - 145 mmol/L) 140 Potassium (3.5 - 5.1 mmol/L) 5.4 H Chloride (98 - 107 mmol/L) 105 Carbon Dioxide (22 - 30 mmol/L) 25 Anion Gap (5 - 16) 10 BUN (7 - 17 mg/dL) 33 H Creatinine (0.5 - 1.0 mg/dL) 2.0 H Estimated GFR (>60 ml/min) 25 L BUN/Creatinine Ratio (7 - 25 %) 16.5 Hematology CBC w Diff NO MAN DIFF REQ WBC (4.8 - 10.8 /CUMM) 10.4 RBC (4.20 - 5.40 /CUMM) 3.63 L Hgb (12.0 - 16.0 G/DL) 11.3 L Hct (37 - 47 %) 33.2 L MCV (81.0 - 99.0 FL) 91.5 MCH (27.0 - 31.0 PG) 31.0 MCHC (33.0 - 37.0 G/DL) 33.9 RDW (11.5 - 14.5 %) 14.5 Plt Count (130 - 400 /CUMM) 446 H MPV (7.4 - 10.4 FL) 8.6 Gran % (42.2 - 75.2 %) 72.9 Lymphocytes % (20.5 - 51.1 %) 17.0 L Monocytes % (1.7 - 9.3 %) 7.2 Eosinophils % (0 - 5 %) 2.6 Basophils % (0.0 - 2.0 %) 0.3 Absolute Granulocytes (1.4 - 6.5 /CUMM) 7.6 H Absolute Lymphocytes (1.2 - 3.4 /CUMM) 1.8 Absolute Monocytes (0.10 - 0.60 /CUMM) 0.7 H Absolute Eosinophils (0.0 - 0.7 /CUMM) 0.3 Absolute Basophils (0.0 - 0.2 /CUMM) 0 A/P; 72 y/o F obese with pmh sig fort nephrolithiasis status post lithotripsy, anxiety, depression and hyperthyroidism admitted with acute confusion. Patient also found to have acute on chronic renal failure secondary to obstructive uropathy from nephrolithiasis now status post cystoscopy and left ureteral stent placement pos procedure day #3 today. Creatinine slightly improved. I did speak the patient's brother over the phone. Nephrology is following the patient and I will double check with [facility] about possible discharge today. I am also trying to call Dr. Morales's office. We will notify him about patient's stay and events in the hospital. Continue to avoid nephrotoxic medications. Patient will likely be discharged later today if okay with nephrology.
[2018-05-22 09:59] LABS: ABSOLUTE BASOPHIL COUNT 0.1 /CUMM (0.0-0.2); ABSOLUTE EOSINOPHIL COUNT 0.2 /CUMM (0.0-0.7); ABSOLUTE GRANULOCYTE CT 6.1 /CUMM (1.4-6.5); ABSOLUTE LYMPH COUNT 1.6 /CUMM (1.2-3.4); ABSOLUTE MONOCYTE COUNT 0.8 /CUMM (0.10-0.60); BASOPHIL % 1.1 % (0.0-2.0); EOSINOPHIL % 2.8 % (0-5); GRANULOCYTE % 68.8 % (42.2-75.2); MEAN CORPUSCULAR HGB CONC 33.9 G/DL (33.0-37.0); MEAN CORPUSCULAR VOLUME 91.4 FL (81.0-99.0); MEAN PLATELET VOLUME 7.7 FL (7.4-10.4); PLATELET COUNT 380 /CUMM (130-400); RBC DISTRIBUTION WIDTH 14.2 % (11.5-14.5); RED BLOOD CELL CT 3.29 /CUMM (4.20-5.40); WHITE BLOOD CELL COUNT 8.9 /CUMM (4.8-10.8)
[2018-05-22 16:07] VITALS: BP 140/80
== END 2018-05-22 17:43 | DRG 694 ==
LOC: ERH 17:48 → ERHI 21:10 → 2NA 21:10 → ENRESERV 22:35 → 2NA 05-18 00:10 → ENTRNSPT 05-19 14:03 → EDTRNSPTSTS 05-19 14:10 → CMPTRNSPT 05-19 14:27 → 2NA 05-21 06:44 → ENTRNSPT 05-22 17:14 → EDTRNSPT 05-22 17:27 → EDTRNSPTSTS 05-22 17:27 → CMPTRNSPT 05-22 17:43 → 2NA 05-22 17:43
PROVIDERS: Internal Medicine; Pediatrics; Student in an Organized Health Care Education/Training Program
PROC: 0T778DZ Dilation of Left Ureter with Intraluminal Device, Via Natural or Artificial Opening Endoscopic (ICD-10-PCS; principal; 2018-05-19)
DX: N13.2 Hydronephrosis with renal and ureteral calculous obstruction (principal); F05 Delirium due to known physiological condition; Z68.43 Body mass index [BMI] 50.0-59.9, adult; E87.1 Hypo-osmolality and hyponatremia; E05.90 Thyrotoxicosis, unspecified without thyrotoxic crisis or storm; E86.0 Dehydration; N17.9 Acute kidney failure, unspecified; E66.9 Obesity, unspecified; Z87.891 Personal history of nicotine dependence; F41.9 Anxiety disorder, unspecified; F32.9 Major depressive disorder, single episode, unspecified; R32 Unspecified urinary incontinence
CPT/HCPCS: 2NASP; 84133; 84300; ERO; 36415; 36592; 71045; 74176; 76000; 76775; 80307; 81001; 82436; 82570; 87086; 93005; 93010; 97161-GP; 97530-GO; C2617; G0480; J0131; J3420; J7042